=== PATIENT | male | born 1945 | race Caucasian/White ===

== ENCOUNTER → 2016-08-06 | Outpatient (REF) | payer MEDICARE ==
[~2016-08-06] MED LIST: ABIL15TA2 PO; ADVA115A INH; ALBU17IN INH; APAP325T PO; CLAR5TAB PO; CYAN1000VL IM; DIOV320T PO; DONETAB6 PO; FURO20TA2 PO; HYDR200T3 PO; LITH45TASA PO; MYRB50TA PO; OMEP20CA3 PO; SULF1TAB30 PO; TAMS0.4C2 PO; TYLE325T5 PO; VALS1TAB48 PO; VENL75CA47 PO; VIBR100C PO; WELLTAB38 PO
[2016-08-06 11:42] LABS: MEAN CORPUSCULAR HEMOGLOBIN 32.5 pg (27.0-33.0); MEAN CORPUSCULAR VOLUME 98.6 fl (80.0-96.0); RED CELL DISTRIBUTION WIDTH 13.1 % (11.5-14.5); WHITE BLOOD COUNT 6.6 K/mm3 (4.0-10.0)
[2016-08-06 12:31] LABS: ALBUMIN 3.5 GM/DL (3.2-5.2); ALBUMIN/GLOBULIN RATIO 1.03 (1.00-1.93); BILIRUBIN,TOTAL 0.2 MG/DL (0.2-1.0); CALCIUM LEVEL 8.9 MG/DL (8.8-10.2); CREATININE FOR GFR 1.34 MG/DL (0.70-1.30); GLOMERULAR FILTRATION RATE 56.3 (>49); POTASSIUM SERUM 4.7 MEQ/L (3.5-5.1); TOTAL PROTEIN 6.9 GM/DL (6.4-8.2)
== END ==
LOC: M SFHCPLAZ 08:33
PROVIDERS: ATTEND Internal Medicine
DX: D69.6 Thrombocytopenia, unspecified (principal); I10 Essential (primary) hypertension; E78.00 Pure hypercholesterolemia, unspecified; Z79.899 Other long term (current) drug therapy

== ENCOUNTER → 2016-11-26 | Outpatient (REF) | payer MEDICARE ==
[2016-11-26 10:54] LABS: MEAN CORPUSCULAR HEMOGLOBIN 32.4 pg (27.0-33.0); MEAN CORPUSCULAR HGB CONC 32.8 g/dl (32.0-36.5); RED CELL DISTRIBUTION WIDTH 13.5 % (11.5-14.5); WHITE BLOOD COUNT 6.8 K/mm3 (4.0-10.0)
[2016-11-26 11:05] LABS: ALBUMIN 3.5 GM/DL (3.2-5.2); ALBUMIN/GLOBULIN RATIO 0.95 (1.00-1.93); ALKALINE PHOSPHATASE 75 U/L (45-117); ALT/SGPT 27 U/L (12-78); ANION GAP 8 MEQ/L (8-16); AST/SGOT 28 U/L (15-37); BILIRUBIN,TOTAL 0.3 MG/DL (0.2-1.0); BLOOD UREA NITROGEN 18 MG/DL (7-18); CALCIUM LEVEL 8.7 MG/DL (8.8-10.2); CARBON DIOXIDE LEVEL 22 MEQ/L (21-32); CHLORIDE LEVEL 109 MEQ/L (98-107); CREATININE FOR GFR 1.25 MG/DL (0.70-1.30); GLOMERULAR FILTRATION RATE > 60.0 (>49); GLUCOSE, FASTING 151 MG/DL (80-110); POTASSIUM SERUM 4.5 MEQ/L (3.5-5.1); SODIUM LEVEL 139 MEQ/L (136-145); TOTAL PROTEIN 7.2 GM/DL (6.4-8.2)
== END ==
LOC: M SFHCPLAZ 07:42
PROVIDERS: ATTEND Internal Medicine
DX: D69.6 Thrombocytopenia, unspecified (principal); I10 Essential (primary) hypertension; R73.9 Hyperglycemia, unspecified; R97.20 Elevated prostate specific antigen [PSA]

== ENCOUNTER → 2017-01-07 | Outpatient (CLI) | payer MEDICARE ==
--- NOTE | 2017-01-07 13:31 | REP ---
TWO-VIEW CHEST: Two views of the chest are performed and compared to prior study of 10/12/2014 as well as other prior exams. Mild cardiomegaly and prominent cardiophrenic fat pads persist, unchanged. There is a large hiatal hernia again noted. Mediastinal silhouette is unchanged. Mild bibasilar fibroatelectatic change is stable with no new infiltrate. There are degenerative changes of the spine. IMPRESSION: Stable chronic findings as discussed in detail above, but no acute pulmonary disease. Signed by Moise Reddy MD 01/07/2017 07:48 P
== END ==
LOC: M SMT 09:53
PROVIDERS: ATTEND Internal Medicine Pulmonary Disease
DX: J45.40 Moderate persistent asthma, uncomplicated (principal)

== ENCOUNTER → 2017-04-03 | Outpatient (REF) | payer MEDICARE ==
[~2017-04-03] MED LIST changes: -ABIL15TA2 PO; +ABIL1TAB12 PO; -APAP325T PO; +APAP325T4 PO
[2017-04-03 13:28] LABS: ALBUMIN 3.6 GM/DL (3.2-5.2); ALBUMIN/GLOBULIN RATIO 1.13 (1.00-1.93); ALKALINE PHOSPHATASE 93 U/L (45-117); ALT/SGPT 36 U/L (12-78); ANION GAP 11 MEQ/L (8-16); AST/SGOT 36 U/L (15-37); BILIRUBIN,TOTAL 0.3 MG/DL (0.2-1.0); BLOOD UREA NITROGEN 16 MG/DL (7-18); CALCIUM LEVEL 9.5 MG/DL (8.8-10.2); CARBON DIOXIDE LEVEL 20 MEQ/L (21-32); CHLORIDE LEVEL 110 MEQ/L (98-107); CREATININE FOR GFR 1.24 MG/DL (0.70-1.30); GLOMERULAR FILTRATION RATE > 60.0 (>49); GLUCOSE, FASTING 133 MG/DL (80-110); POTASSIUM SERUM 4.8 MEQ/L (3.5-5.1); SODIUM LEVEL 141 MEQ/L (136-145); TOTAL PROTEIN 6.8 GM/DL (6.4-8.2)
[2017-04-03 13:39] LABS: MEAN CORPUSCULAR HEMOGLOBIN 34.2 pg (27.0-33.0); MEAN CORPUSCULAR HGB CONC 33.4 g/dl (32.0-36.5); MEAN CORPUSCULAR VOLUME 102.5 fl (80.0-96.0); RED CELL DISTRIBUTION WIDTH 12.6 % (11.5-14.5); WHITE BLOOD COUNT 6.4 K/mm3 (4.0-10.0)
== END ==
LOC: M SFHCPLAZ 09:18
PROVIDERS: ATTEND Internal Medicine
DX: D69.6 Thrombocytopenia, unspecified (principal); R73.9 Hyperglycemia, unspecified; I10 Essential (primary) hypertension

== ENCOUNTER 2017-08-20 07:13 | Emergency (ER) | payer MEDICARE ==
[2017-08-20] MEDS: IPRATROPIUM 0.5MG/ALBUTEROL 2.5MG INH SOL UD 3ML (DUONEB)(J7620) NEB ×2 (07:55→09:56)
[2017-08-20 08:12] LABS: BASO # 0.1 10^3/uL (0.0-0.2); BASO % 1.3 % (0.0-1.0); EOS # 0.6 10^3/uL (0.0-0.50); HEMATOCRIT 40.6 % (42.0-52.0); HEMOGLOBIN 13.3 g/dl (14.0-18.0); IMMATURE GRANULOCYTE % 0.3 % (0-0); LYMPH # 1.8 10^3/uL (1.5-4.5); LYMPH % 27.7 % (24.0-44.0); MEAN CORPUSCULAR HEMOGLOBIN 31.4 pg (27.0-33.0); MEAN CORPUSCULAR HGB CONC 32.8 g/dl (32.0-36.5); MONO # 0.6 10^3/uL (0.0-0.8); MONO % 9.1 % (0.0-5.0); NEUTROPHILS # 3.3 10^3/uL (1.8-7.7); NEUTROPHILS % 51.6 % (36.0-66.0); PLATELET COUNT, AUTOMATED 134 10^3/uL (150-450); RED BLOOD COUNT 4.23 10^6/uL (4.30-6.10); RED CELL DISTRIBUTION WIDTH 12.9 % (11.5-14.5); WHITE BLOOD COUNT 6.4 10^3/uL (4.0-10.0)
[2017-08-20 08:20] LABS: INR 1.07
[2017-08-20 09:00] LABS: LACTIC ACID SEPSIS PROTOCOL 2.2 MMOL/L (0.4-2.0)
[2017-08-20 09:00] LABS: ALBUMIN 3.3 GM/DL (3.2-5.2); ALKALINE PHOSPHATASE 84 U/L (45-117); ALT/SGPT 31 U/L (12-78); ANION GAP 5 MEQ/L (8-16); AST/SGOT 33 U/L (7-37); BILIRUBIN,DIRECT 0.1 MG/DL (0.0-0.2); BILIRUBIN,TOTAL 0.3 MG/DL (0.2-1.0); BLOOD UREA NITROGEN 19 MG/DL (7-18); CALCIUM LEVEL 9.4 MG/DL (8.8-10.2); CARBON DIOXIDE LEVEL 24 MEQ/L (21-32); CHLORIDE LEVEL 111 MEQ/L (98-107); CK-MB VALUE MASS 3.8 NG/ML (0.0-3.6); CPK CREATINE PHOSPHOKINASE 173 U/L (39-308); CREATININE FOR GFR 1.26 MG/DL (0.70-1.30); GLOMERULAR FILTRATION RATE > 60.0 (>42); GLUCOSE, FASTING 99 MG/DL (70-100); MB/CK RELATIVE INDEX 2.19 (< OR =4); NT-PRO BNP 75 PG/ML (<125); POTASSIUM SERUM 4.9 MEQ/L (3.5-5.1); SODIUM LEVEL 140 MEQ/L (136-145); TOTAL PROTEIN 7.4 GM/DL (6.4-8.2); TROPONIN I < 0.02 NG/ML (< 0.10)
[2017-08-20] MEDS: NS 1,000 ML IV (09:20)
[2017-08-20] MEDS ORDERED: ISOVUE-370 76% 100ML VIAL (Q9967) As Ordered (09:52)
[2017-08-20] MEDS: predniSONE 20 MG TAB PO (09:52)
[2017-08-20] MEDS: CEFUROXIME 500 MG TAB PO (11:30)
== END 2017-08-20 11:33 | disposition home or self-care (01) ==
LOC: M ED 07:13
DX: R05 Cough (principal); K44.9 Diaphragmatic hernia without obstruction or gangrene; I10 Essential (primary) hypertension; E11.9 Type 2 diabetes mellitus without complications; Z79.899 Other long term (current) drug therapy; Z79.51 Long term (current) use of inhaled steroids
CPT/HCPCS: Q9967

== ENCOUNTER → 2017-08-28 | Outpatient (REF) | payer MEDICARE | LOC: M SFHCPLAZ 13:48 | DX: R93.2 Abnormal findings on diagnostic imaging of liver and biliary tract (principal); R05 Cough; J45.909 Unspecified asthma, uncomplicated; E11.9 Type 2 diabetes mellitus without complications; Z79.84 Long term (current) use of oral hypoglycemic drugs; Z79.899 Other long term (current) drug therapy | CPT/HCPCS: G0472 ==

== ENCOUNTER → 2017-10-13 | Outpatient (REF) | payer MEDICARE ==
[2017-10-13 12:26] LABS: HEMATOCRIT 43.7 % (42.0-52.0); HEMOGLOBIN 14.1 g/dl (14.0-18.0); MEAN CORPUSCULAR HEMOGLOBIN 32.4 pg (27.0-33.0); MEAN CORPUSCULAR HGB CONC 32.3 g/dl (32.0-36.5); MEAN CORPUSCULAR VOLUME 100.5 fl (80.0-96.0); PLATELET COUNT, AUTOMATED 152 10^3/uL (150-450); RED BLOOD COUNT 4.35 10^6/uL (4.30-6.10); RED CELL DISTRIBUTION WIDTH 13.8 % (11.5-14.5); WHITE BLOOD COUNT 8.4 10^3/uL (4.0-10.0)
[2017-10-13 12:53] LABS: ALBUMIN 3.5 GM/DL (3.2-5.2); ALBUMIN/GLOBULIN RATIO 0.92 (1.00-1.93); ALKALINE PHOSPHATASE 99 U/L (45-117); ALT/SGPT 36 U/L (12-78); ANION GAP 10 MEQ/L (8-16); AST/SGOT 31 U/L (7-37); BILIRUBIN,TOTAL 0.3 MG/DL (0.2-1.0); BLOOD UREA NITROGEN 19 MG/DL (7-18); CALCIUM LEVEL 9.6 MG/DL (8.8-10.2); CARBON DIOXIDE LEVEL 24 MEQ/L (21-32); CHLORIDE LEVEL 110 MEQ/L (98-107); CHOLESTEROL LEVEL 146 MG/DL (<200); CHOLESTEROL RISK RATIO 3.173 (<5); GLOMERULAR FILTRATION RATE 53.3 (>42); GLUCOSE, FASTING 119 MG/DL (70-100); HDL CHOLESTEROL 46 MG/DL (>40); LDL CHOLESTEROL 74.2 MG/DL (<100); MAGNESIUM LEVEL 1.9 MG/DL (1.8-2.4); NON-HDL-C 100 MG/DL; POTASSIUM SERUM 4.9 MEQ/L (3.5-5.1); PROSTATIC SPECIFIC AG MONITOR 7.47 NG/ML (< 4.0); SODIUM LEVEL 144 MEQ/L (136-145); TOTAL PROTEIN 7.3 GM/DL (6.4-8.2); TRIGLYCERIDES LEVEL 129 MG/DL (<150)
[2017-10-13 13:14] LABS: ESTIMATED AVERAGE GLUCOSE 131 MG/DL (60-110); HEMOGLOBIN A1c 6.2 %
[2017-10-13 13:15] LABS: MALB URINE SIEMENS 14.1 MG/L; MAU/CREAT RATIO 11.2 MCG/MG (0.0-30.0)
[2017-10-14 12:35] LABS: HEP C VIRUS AB SCREEN MEDICARE 0.1 INDEX (<0.8)
== END ==
LOC: M SFHCPLAZ 09:04
DX: D69.6 Thrombocytopenia, unspecified (principal); I10 Essential (primary) hypertension; E11.9 Type 2 diabetes mellitus without complications; E78.00 Pure hypercholesterolemia, unspecified; R97.20 Elevated prostate specific antigen [PSA]; Z11.59 Encounter for screening for other viral diseases
CPT/HCPCS: 83735

== ENCOUNTER → 2018-04-20 | Outpatient (REF) | payer MEDICARE ==
[2018-04-20 10:07] LABS: HEMATOCRIT 46.3 % (42.0-52.0); HEMOGLOBIN 14.9 g/dl (13.5-17.5); MEAN CORPUSCULAR HEMOGLOBIN 32.6 pg (27.0-33.0); MEAN CORPUSCULAR HGB CONC 32.2 g/dl (32.0-36.5); MEAN CORPUSCULAR VOLUME 101.3 fl (80.0-96.0); PLATELET COUNT, AUTOMATED 129 10^3/uL (150-450); RED BLOOD COUNT 4.57 10^6/uL (4.30-6.10); RED CELL DISTRIBUTION WIDTH 13.2 % (11.5-14.5); WHITE BLOOD COUNT 7.6 10^3/uL (4.0-10.0)
[2018-04-20 10:50] LABS: ALBUMIN 3.7 GM/DL (3.2-5.2); ALBUMIN/GLOBULIN RATIO 0.95 (1.00-1.93); ALKALINE PHOSPHATASE 77 U/L (45-117); ALT/SGPT 28 U/L (12-78); ANION GAP 12 MEQ/L (8-16); AST/SGOT 25 U/L (7-37); BILIRUBIN,TOTAL 0.2 MG/DL (0.2-1.0); BLOOD UREA NITROGEN 33 MG/DL (7-18); CALCIUM LEVEL 9.9 MG/DL (8.8-10.2); CARBON DIOXIDE LEVEL 18 MEQ/L (21-32); CHLORIDE LEVEL 111 MEQ/L (98-107); GLOMERULAR FILTRATION RATE 53.3 (>42); GLUCOSE, FASTING 141 MG/DL (70-100); MAGNESIUM LEVEL 2.1 MG/DL (1.8-2.4); POTASSIUM SERUM 4.8 MEQ/L (3.5-5.1); PROSTATIC SPECIFIC AG MONITOR 8.71 NG/ML (< 4.0); SODIUM LEVEL 141 MEQ/L (136-145); TOTAL PROTEIN 7.6 GM/DL (6.4-8.2)
[2018-04-20 11:51] LABS: ESTIMATED AVERAGE GLUCOSE 120 MG/DL (60-110); HEMOGLOBIN A1c 5.8 %
== END ==
LOC: M SFHCPLAZ 08:05
DX: G47.30 Sleep apnea, unspecified (principal); D69.6 Thrombocytopenia, unspecified; E11.9 Type 2 diabetes mellitus without complications; Z12.5 Encounter for screening for malignant neoplasm of prostate
CPT/HCPCS: 83735

== ENCOUNTER → 2018-10-19 | Outpatient (REF) | payer MEDICARE ==
[~2018-10-19] MED LIST changes: +ALBU83IN INH; +CEFT250T8 PO; +COMP1MIS3 XX; +PRED20TA PO
[2018-10-19 11:44] LABS: MALB URINE SIEMENS 21.2 MG/L; MAU/CREAT RATIO 15.2 MCG/MG (0.0-30.0)
[2018-10-19 11:47] LABS: BASO # 0.1 10^3/uL (0.0-0.2); BASO % 1.1 % (0.0-1.0); EOS # 0.7 10^3/uL (0.0-0.50); HEMOGLOBIN 14.5 g/dl (13.5-17.5); LYMPH # 2.1 10^3/uL (1.5-4.5); LYMPH % 29.3 % (24.0-44.0); MEAN CORPUSCULAR HEMOGLOBIN 32.4 pg (27.0-33.0); MEAN CORPUSCULAR HGB CONC 32.2 g/dl (32.0-36.5); MEAN CORPUSCULAR VOLUME 100.7 fl (80.0-96.0); MONO # 0.7 10^3/uL (0.0-0.8); MONO % 9.5 % (0.0-5.0); NEUTROPHILS # 3.6 10^3/uL (1.8-7.7); NEUTROPHILS % 49.7 % (36.0-66.0); PLATELET COUNT, AUTOMATED 158 10^3/uL (150-450); RED BLOOD COUNT 4.47 10^6/uL (4.30-6.10); WHITE BLOOD COUNT 7.3 10^3/uL (4.0-10.0)
[2018-10-19 11:53] LABS: ALBUMIN 3.7 GM/DL (3.2-5.2); ALT/SGPT 13 U/L (12-78); BILIRUBIN,TOTAL 0.3 MG/DL (0.2-1.0); BLOOD UREA NITROGEN 20 MG/DL (7-18); CALCIUM LEVEL 9.3 MG/DL (8.8-10.2); CARBON DIOXIDE LEVEL 23 MEQ/L (21-32); CHLORIDE LEVEL 113 MEQ/L (98-107); CHOLESTEROL LEVEL 173 MG/DL (<200); CHOLESTEROL RISK RATIO 3.392 (<5); GLOMERULAR FILTRATION RATE > 60.0 (>42); GLUCOSE, FASTING 120 MG/DL (70-100); HDL CHOLESTEROL 51 MG/DL (>40); LDL CHOLESTEROL 104 MG/DL (<100); MAGNESIUM LEVEL 1.9 MG/DL (1.8-2.4); NON-HDL-C 122 MG/DL; POTASSIUM SERUM 4.5 MEQ/L (3.5-5.1); SODIUM LEVEL 141 MEQ/L (136-145); TRIGLYCERIDES LEVEL 90 MG/DL (<150)
[2018-10-19 12:19] LABS: HEMOGLOBIN A1c 6.4 %
[2018-10-20 14:12] LABS: PSA % FREE 9.2 % (.); PSA FREE 0.84 ng/mL; PSA TOTAL 9.1 ng/mL (0.0-4.0)
== END ==
LOC: M SFHCPLAZ 08:08
PROVIDERS: ATTEND Internal Medicine
DX: D69.6 Thrombocytopenia, unspecified (principal); I12.9 Hypertensive chronic kidney disease with stage 1 through stage 4 chronic kidney disease, or unspecified chronic kidney disease; E11.9 Type 2 diabetes mellitus without complications; E78.00 Pure hypercholesterolemia, unspecified; R97.20 Elevated prostate specific antigen [PSA]

== ENCOUNTER → 2018-10-26 | Outpatient (CLI) | payer MEDICARE ==
[~2018-10-26] MED LIST changes: -VALS1TAB48 PO; +VALS1TAB68 PO
--- NOTE | 2018-10-26 09:57 | REP ---
CT IACS WITHOUT CONTRAST: HISTORY: Hearing loss. The internal auditory canals , cochlea, vestibules, and semicircular canals are normal in appearance. There is no carotid canal or jugular bulb dehiscence. The ossicles are normal in configuration and position. The scutum and right tegmen are intact. There are areas of dehiscence in the left tegmen. The middle ear cavities are clear. Minimal mucosal thickening is present in the right mastoid air cells. Mild mucosal thickening is present in the left mastoid air cells. Mucosa thickening is present in the ethmoid, maxillary and right sphenoid sinuses. The nasopharynx is normal in appearance. IMPRESSION:There is minimal right and mild left mastoid air cell mucosal thickening. Electronically Signed by Zechariah Granda MD 10/26/2018 10:12 A
== END ==
LOC: M RAD 08:52
PROVIDERS: ATTEND Otolaryngology
DX: H90.A32 Mixed conductive and sensorineural hearing loss, unilateral, left ear with restricted hearing on the contralateral side (principal)

== ENCOUNTER → 2019-05-03 | Outpatient (REF) | payer MEDICARE ==
[~2019-05-03] MED LIST changes: +OMEP1CAP73 PO; -OMEP20CA3 PO
[2019-05-03 12:00] LABS: BASO # 0.1 10^3/uL (0.0-0.2); BASO % 1.1 % (0.0-1.0); EOS # 0.5 10^3/uL (0.0-0.5); EOS % 6.9 % (0.0-3.0); HEMATOCRIT 44.6 % (42.0-52.0); HEMOGLOBIN 14.1 g/dl (13.5-17.5); LYMPH # 1.3 10^3/uL (1.5-5.0); LYMPH % 17.4 % (24.0-44.0); MEAN CORPUSCULAR HEMOGLOBIN 34.2 pg (27.0-33.0); MEAN CORPUSCULAR HGB CONC 31.6 g/dl (32.0-36.5); MEAN CORPUSCULAR VOLUME 108.3 fl (80.0-96.0); MONO # 0.8 10^3/uL (0.0-0.8); NEUTROPHILS # 4.6 10^3/uL (1.5-8.5); NEUTROPHILS % 63.2 % (36.0-66.0); PLATELET COUNT, AUTOMATED 131 10^3/uL (150-450); RED BLOOD COUNT 4.12 10^6/uL (4.30-6.10); WHITE BLOOD COUNT 7.3 10^3/uL (4.0-10.0)
[2019-05-03 12:20] LABS: ALBUMIN 3.7 GM/DL (3.2-5.2); BILIRUBIN,TOTAL 0.4 MG/DL (0.2-1.0); CALCIUM LEVEL 9.6 MG/DL (8.8-10.2); CHOLESTEROL RISK RATIO 3.129 (<5); CREATININE FOR GFR 1.66 MG/DL (0.70-1.30); GLOMERULAR FILTRATION RATE 43.7 (>42); POTASSIUM SERUM 5.1 MEQ/L (3.5-5.1); THYROID STIMULATING HORMONE 2.24 uIU/ML (0.358-3.740); TOTAL PROTEIN 7.7 GM/DL (6.4-8.2)
[2019-05-03 12:36] LABS: MALB URINE SIEMENS 28.9 MG/L; MAU/CREAT RATIO 25.3 MCG/MG (0.0-30.0)
[2019-05-03 13:12] LABS: HEMOGLOBIN A1c 5.4 %
[2019-05-05 00:07] LABS: PSA TOTAL 12.1 ng/mL (0.0-4.0)
== END ==
LOC: M SFHCPLAZ 09:06
PROVIDERS: ATTEND Internal Medicine
DX: D69.6 Thrombocytopenia, unspecified (principal); I12.9 Hypertensive chronic kidney disease with stage 1 through stage 4 chronic kidney disease, or unspecified chronic kidney disease; E11.9 Type 2 diabetes mellitus without complications; E78.00 Pure hypercholesterolemia, unspecified; R97.20 Elevated prostate specific antigen [PSA]; Z79.899 Other long term (current) drug therapy; E53.8 Deficiency of other specified B group vitamins

== ENCOUNTER → 2019-08-09 | Outpatient (REF) | payer MEDICARE ==
[2019-08-09 11:42] LABS: HEMATOCRIT 44.9 % (42.0-52.0); HEMOGLOBIN 14.3 g/dl (13.5-17.5); MEAN CORPUSCULAR HGB CONC 31.8 g/dl (32.0-36.5); MEAN CORPUSCULAR VOLUME 103.7 fl (80.0-96.0); PLATELET COUNT, AUTOMATED 154 10^3/uL (150-450); RED BLOOD COUNT 4.33 10^6/uL (4.30-6.10); WHITE BLOOD COUNT 8.8 10^3/uL (4.0-10.0)
[2019-08-09 11:56] LABS: ALBUMIN 3.8 GM/DL (3.2-5.2); BILIRUBIN,TOTAL 0.3 MG/DL (0.2-1.0); CALCIUM LEVEL 9.7 MG/DL (8.8-10.2); CREATININE FOR GFR 1.63 MG/DL (0.70-1.30); GLOMERULAR FILTRATION RATE 44.5 (>42); MAGNESIUM LEVEL 2.1 MG/DL (1.8-2.4); POTASSIUM SERUM 5.2 MEQ/L (3.5-5.1); PROSTATIC SPECIFIC AG MONITOR 12.7 NG/ML (< 4.00); TOTAL PROTEIN 7.5 GM/DL (6.4-8.2)
[2019-08-09 14:34] LABS: HEMOGLOBIN A1c 5.9 %
== END ==
LOC: M SFHCPLAZ 08:34
PROVIDERS: ATTEND Internal Medicine
DX: D69.6 Thrombocytopenia, unspecified (principal); I12.9 Hypertensive chronic kidney disease with stage 1 through stage 4 chronic kidney disease, or unspecified chronic kidney disease; E11.9 Type 2 diabetes mellitus without complications; R97.20 Elevated prostate specific antigen [PSA]

== ENCOUNTER → 2019-09-07 | Outpatient (REF) | payer MEDICARE ==
[2019-09-07 14:24] LABS: APPEARANCE, URINE CLEAR (CLEAR); BACTERIA, URINE AUTO 1+ (NEGATIVE); BILIRUBIN, URINE AUTO NEGATIVE (NEGATIVE); BLOOD, URINE BLOOD NEGATIVE (NEGATIVE); COLOR, URINE YELLOW (YELLOW); GLUCOSE, URINE (UA) AUTO NEGATIVE (NEGATIVE); KETONE, URINE AUTO NEGATIVE (NEGATIVE); LEUKOCYTE ESTERASE, URINE AUTO 2+ (NEGATIVE); NITRITE, URINE AUTO NEGATIVE (NEGATIVE); PROTEIN, URINE AUTO NEGATIVE (NEGATIVE); RBC, URINE AUTO 4 /HPF (0-3); SPECIFIC GRAVITY URINE AUTO 1.015 (1.002-1.035); SQUAMOUS EPITHELIAL CELL UR AU 1 /HPF (0-6); UROBILINOGEN, URINE AUTO 0.2 mg/dL (0.0-2.0); WBC, URINE AUTO 16 /HPF (0-3)
== END ==
LOC: M SMT 12:58
PROVIDERS: ATTEND Nurse Practitioner Family
DX: R39.9 Unspecified symptoms and signs involving the genitourinary system (principal)
CPT/HCPCS: 51798; 81001; 87088; 87186; G0463

== ENCOUNTER → 2019-10-11 | Outpatient (REF) | payer MEDICARE ==
[2019-10-11 14:11] LABS: APPEARANCE, URINE CLEAR (CLEAR); BACTERIA, URINE AUTO NEGATIVE (NEGATIVE); BILIRUBIN, URINE AUTO NEGATIVE (NEGATIVE); BLOOD, URINE BLOOD NEGATIVE (NEGATIVE); COLOR, URINE YELLOW (YELLOW); GLUCOSE, URINE (UA) AUTO NEGATIVE (NEGATIVE); KETONE, URINE AUTO NEGATIVE (NEGATIVE); LEUKOCYTE ESTERASE, URINE AUTO TRACE (NEGATIVE); NITRITE, URINE AUTO NEGATIVE (NEGATIVE); PROTEIN, URINE AUTO NEGATIVE (NEGATIVE); RBC, URINE AUTO 1 /HPF (0-3); SPECIFIC GRAVITY URINE AUTO 1.013 (1.002-1.035); SQUAMOUS EPITHELIAL CELL UR AU 0 /HPF (0-6); UROBILINOGEN, URINE AUTO 0.2 mg/dL (0.0-2.0); WBC, URINE AUTO 6 /HPF (0-3)
[2019-10-12 14:07] LABS: PSA % FREE 11.1 % (.); PSA FREE 1.04 ng/mL; PSA TOTAL 9.4 ng/mL (0.0-4.0)
== END ==
LOC: M SFHCPLAZ 11:43
PROVIDERS: ATTEND Internal Medicine
DX: R97.20 Elevated prostate specific antigen [PSA] (principal); N39.0 Urinary tract infection, site not specified

== ENCOUNTER → 2020-02-08 | Outpatient (REF) | payer MEDICARE ==
[2020-02-08 14:25] LABS: BASO # 0.1 10^3/uL (0.0-0.2); BASO % 1.1 % (0.0-1.0); EOS # 0.5 10^3/uL (0.0-0.5); EOS % 7.2 % (0.0-3.0); HEMATOCRIT 39.5 % (42.0-52.0); HEMOGLOBIN 12.5 g/dl (13.5-17.5); LYMPH % 30.6 % (24.0-44.0); MEAN CORPUSCULAR HEMOGLOBIN 33.3 pg (27.0-33.0); MEAN CORPUSCULAR HGB CONC 31.6 g/dl (32.0-36.5); MEAN CORPUSCULAR VOLUME 105.3 fl (80.0-96.0); MONO # 0.8 10^3/uL (0.0-0.8); MONO % 12.5 % (0.0-5.0); NEUTROPHILS # 3.2 10^3/uL (1.5-8.5); NEUTROPHILS % 48.1 % (36.0-66.0); PLATELET COUNT, AUTOMATED 160 10^3/uL (150-450); RED BLOOD COUNT 3.75 10^6/uL (4.30-6.10); WHITE BLOOD COUNT 6.7 10^3/uL (4.0-10.0)
[2020-02-08 14:42] LABS: HEMOGLOBIN A1c 5.2 %
[2020-02-08 14:58] LABS: ALBUMIN 3.6 GM/DL (3.2-5.2); BILIRUBIN,TOTAL 0.4 MG/DL (0.2-1.0); CALCIUM LEVEL 9.7 MG/DL (8.8-10.2); CHOLESTEROL RISK RATIO 3.24 (<5); CREATININE FOR GFR 1.84 MG/DL (0.70-1.30); GLOMERULAR FILTRATION RATE 38.7 (>42); MAGNESIUM LEVEL 2.3 MG/DL (1.8-2.4); POTASSIUM SERUM 5.4 MEQ/L (3.5-5.1); PROSTATIC SPECIFIC AG MONITOR 13.8 NG/ML (< 4.00); TOTAL PROTEIN 7.6 GM/DL (6.4-8.2)
[2020-02-08 15:04] LABS: CREATININE, URINE 73.5 MG/DL; MALB URINE SIEMENS 9.8 MG/L; MAU/CREAT RATIO 13.3 MCG/MG (0.0-30.0)
[2020-02-08 15:05] LABS: PTH INTACT 59.7 PG/ML (18.5-88.0)
== END ==
LOC: M PLALAB 09:25
PROVIDERS: ATTEND Internal Medicine
DX: D69.6 Thrombocytopenia, unspecified (principal); I12.9 Hypertensive chronic kidney disease with stage 1 through stage 4 chronic kidney disease, or unspecified chronic kidney disease; E11.9 Type 2 diabetes mellitus without complications; E78.00 Pure hypercholesterolemia, unspecified; N18.3 Chronic kidney disease, stage 3 (moderate); R97.20 Elevated prostate specific antigen [PSA]

== ENCOUNTER → 2020-04-20 | Outpatient (CLI) | payer MEDICARE ==
[2020-04-24 23:07] LABS: PSA TOTAL 11.4 ng/mL (0.0-4.0)
== END ==
LOC: M PLALAB 10:21
PROVIDERS: ATTEND Nurse Practitioner Family
DX: N39.0 Urinary tract infection, site not specified (principal); R97.20 Elevated prostate specific antigen [PSA]

== ENCOUNTER → 2020-04-27 | Outpatient (REF) | payer MEDICARE ==
[2020-04-27 10:33] LABS: BASO # 0.1 10^3/uL (0.0-0.2); EOS % 12.4 % (0.0-3.0); HEMATOCRIT 38.7 % (42.0-52.0); HEMOGLOBIN 12.2 g/dl (13.5-17.5); LYMPH # 1.9 10^3/uL (1.5-5.0); LYMPH % 22.9 % (24.0-44.0); MEAN CORPUSCULAR HGB CONC 31.5 g/dl (32.0-36.5); MEAN CORPUSCULAR VOLUME 104.6 fl (80.0-96.0); MONO # 0.9 10^3/uL (0.0-0.8); MONO % 10.6 % (0.0-5.0); NEUTROPHILS # 4.4 10^3/uL (1.5-8.5); NEUTROPHILS % 52.5 % (36.0-66.0); PLATELET COUNT, AUTOMATED 165 10^3/uL (150-450); WHITE BLOOD COUNT 8.4 10^3/uL (4.0-10.0)
[2020-04-27 10:52] LABS: ALBUMIN 3.4 GM/DL (3.2-5.2); BILIRUBIN,TOTAL 0.2 MG/DL (0.2-1.0); CALCIUM LEVEL 9.5 MG/DL (8.8-10.2); CREATININE FOR GFR 1.32 MG/DL (0.70-1.30); GLOMERULAR FILTRATION RATE 56.8 (>42); POTASSIUM SERUM 4.6 MEQ/L (3.5-5.1); TOTAL PROTEIN 7.1 GM/DL (6.4-8.2)
[2020-04-27 11:00] LABS: PTH INTACT 74.9 PG/ML (18.5-88.0)
== END ==
LOC: M PLALAB 08:48
PROVIDERS: ATTEND Internal Medicine
DX: D69.6 Thrombocytopenia, unspecified (principal); I12.9 Hypertensive chronic kidney disease with stage 1 through stage 4 chronic kidney disease, or unspecified chronic kidney disease; N18.9 Chronic kidney disease, unspecified

== ENCOUNTER → 2020-05-18 | Outpatient (REF) | payer MEDICARE ==
[2020-05-22 18:10] LABS: PSA % FREE 11.1 % (.); PSA FREE 0.89 ng/mL
== END ==
LOC: M PLALAB 14:45
PROVIDERS: ATTEND Nurse Practitioner Family
DX: R97.20 Elevated prostate specific antigen [PSA] (principal)

== ENCOUNTER → 2020-07-30 | Outpatient (REF) | payer MEDICARE ==
[2020-07-30 15:39] LABS: ALBUMIN 3.6 GM/DL (3.2-5.2); BILIRUBIN,TOTAL 0.3 MG/DL (0.2-1.0); CALCIUM LEVEL 9.5 MG/DL (8.8-10.2); CREATININE FOR GFR 1.37 MG/DL (0.70-1.30); GLOMERULAR FILTRATION RATE 54.4 (>42); POTASSIUM SERUM 4.1 MEQ/L (3.5-5.1)
[2020-07-30 15:46] LABS: PTH INTACT 55.1 PG/ML (18.5-88.0)
== END ==
LOC: M SFHCPLAZ 09:47
PROVIDERS: ATTEND Internal Medicine
DX: I12.9 Hypertensive chronic kidney disease with stage 1 through stage 4 chronic kidney disease, or unspecified chronic kidney disease (principal); N18.30 Chronic kidney disease, stage 3 unspecified

== ENCOUNTER → 2020-11-29 | Outpatient (REF) | payer MEDICARE ==
[2020-11-29 10:51] LABS: HEMOGLOBIN A1c 5.5 %
[2020-11-29 11:03] LABS: CHOLESTEROL RISK RATIO 3.203 (<5)
== END ==
LOC: M PLALAB 09:46
PROVIDERS: ATTEND Psychiatry & Neurology Psychiatry
DX: Z79.899 Other long term (current) drug therapy (principal)

== ENCOUNTER → 2020-11-29 | Outpatient (REF) | payer MEDICARE | LOC: M PLALAB 09:48 | PROVIDERS: ATTEND Nurse Practitioner Women's Health | DX: R97.20 Elevated prostate specific antigen [PSA] (principal) ==

== ENCOUNTER → 2020-12-03 | Outpatient (REF) | payer MEDICARE ==
[2020-12-03 14:17] LABS: APPEARANCE, URINE HAZY (CLEAR); BACTERIA, URINE AUTO NEGATIVE (NEGATIVE); BILIRUBIN, URINE AUTO NEGATIVE (NEGATIVE); BLOOD, URINE BLOOD NEGATIVE (NEGATIVE); COLOR, URINE AMBER (YELLOW); GLUCOSE, URINE (UA) AUTO NEGATIVE (NEGATIVE); KETONE, URINE AUTO NEGATIVE (NEGATIVE); LEUKOCYTE ESTERASE, URINE AUTO 3+ (NEGATIVE); NITRITE, URINE AUTO NEGATIVE (NEGATIVE); PROTEIN, URINE AUTO 1+ mg/dL (NEGATIVE); RBC, URINE AUTO 2 /HPF (0-3); SPECIFIC GRAVITY URINE AUTO 1.019 (1.002-1.035); SQUAMOUS EPITHELIAL CELL UR AU 4 /HPF (0-6); UROBILINOGEN, URINE AUTO 0.2 mg/dL (0.0-2.0); WBC, URINE AUTO 23 /HPF (0-3)
== END ==
LOC: M SMT 13:09
PROVIDERS: ATTEND Urology
DX: R97.20 Elevated prostate specific antigen [PSA] (principal); R30.0 Dysuria
CPT/HCPCS: 81001; 87086; G0463

== ENCOUNTER → 2020-12-14 | Outpatient (REF) | payer MEDICARE ==
[2020-12-14 12:39] LABS: HEMATOCRIT 42.5 % (42.0-52.0); HEMOGLOBIN 13.6 g/dl (13.5-17.5); MEAN CORPUSCULAR HEMOGLOBIN 30.9 pg (27.0-33.0); MEAN CORPUSCULAR VOLUME 96.6 fl (80.0-96.0); PLATELET COUNT, AUTOMATED 230 10^3/uL (150-450); WHITE BLOOD COUNT 8.7 10^3/uL (4.0-10.0)
[2020-12-14 12:54] LABS: CALCIUM LEVEL 9.2 MG/DL (8.8-10.2); CREATININE FOR GFR 1.35 MG/DL (0.70-1.30); GLOMERULAR FILTRATION RATE 55.2 (>42); POTASSIUM SERUM 4.8 MEQ/L (3.5-5.1)
== END ==
LOC: M LABSMT 09:27
PROVIDERS: ATTEND Urology
DX: R97.20 Elevated prostate specific antigen [PSA] (principal)

== ENCOUNTER → 2020-12-19 | Outpatient (CLI) | payer MEDICARE ==
[~2020-12-19] MED LIST changes: +PROHANCE 279.3MG/ML 5ML VIAL As Ordered ONE
--- NOTE | 2020-12-19 18:38 | REP ---
INDICATION: ELEVATED PSA PROSTATE FUSION . COMPARISON: Comparison sonography 2013. TECHNIQUE: Using a phased array surface coil, small tyhzl-bf-byyh imaging was acquired using T2 weighted scans in the axial, coronal, and sagittal imaging planes. Small ksytg-rn-kcwa diffusion-weighted sequences are acquired. Small hezxu-oi-mzcu axial T1 weighted scans are acquired dynamically before and after the intravenous administration of 10 mL of ProHance. Imaging is reviewed using the [employer] computer-aided detection system. FINDINGS: There is no evidence of skeletal metastasis in the visualized bony pelvis or proximal femurs. No pelvic or inguinal adenopathy is seen. No extraprostatic disease is observed. Prostate glandular dimensions are 4.4 x 3.7 x 3.4 cm. Calculated glandular volume 33.3 mL. There is hypertrophy of the central gland with nodular and cystic changes. Three focal regions of interest are identified based on imaging parameters within the prostate. These are submitted for consideration of MR/ultrasound fusion directed biopsy. Lesion 1 is in the left mid anterior stroma characterized by an area of low T2 signal, mixed enhancement and washout kinetics similar to background, and moderately low ADC. PI-RADS category 3. It measures 0.9 x 0.6 x 1.0 cm, 0.4 mL. Lesion 2 is in the left mid anterolateral peripheral zone measuring 1.5 x 0.7 x 1.4 cm, 0.92 mL. It is a circumscribed nodular area of low T2 signal intensity with predominantly persistent enhancement characteristics and low ADC. PI-RADS category 3/5. Lesion 3 is in the left apicolateral peripheral zone measuring 0.7 x 0.6 x 0.7 cm, 0.2 mL. It is a small peripheral zone low T2 signal intensity nodule with slightly reduced ADC and type 3 contrast enhancement and washout curve. PI-RADS category 3/5. IMPRESSION: BPH changes and 3 nodular targets identified within the prostate submitted for consideration of fusion directed needle biopsy. No extraprostatic disease. <Electronically signed by Doc Werner > 12/19/20 [id number]
== END ==
LOC: M RAD 12:40
PROVIDERS: ATTEND Urology
DX: N40.0 Benign prostatic hyperplasia without lower urinary tract symptoms (principal); R97.20 Elevated prostate specific antigen [PSA]
CPT/HCPCS: 72197; A9576

== ENCOUNTER → 2021-01-01 | Outpatient (CLI) | payer MEDICARE ==
[~2021-01-01] MED LIST changes: -PROHANCE 279.3MG/ML 5ML VIAL As Ordered ONE
--- NOTE | 2021-01-02 15:20 | REPPI ---
INDICATION: ELEVATED PSA. COMPARISON: MRI 12/19/2020. TECHNIQUE: Transrectal prostate ultrasound performed, with ultrasound guidance provided for Dr. Lima who performed ultrasound-guided biopsy. FINDINGS: Transrectal ultrasound guidance was provided for Dr. Lima who performed ultrasound-guided biopsy. IMPRESSION: Transrectal ultrasound guidance was provided for Dr. Lima who performed ultrasound-guided biopsy of the prostate. <Electronically signed by Moise Reddy > 01/02/21 [id number]
== END ==
LOC: M SMT PRO 08:12
PROVIDERS: ATTEND Urology
DX: C61 Malignant neoplasm of prostate (principal)
CPT/HCPCS: 55700; 76942; G0416

== ENCOUNTER → 2021-01-25 | Outpatient (CLI) | payer MEDICARE ==
--- NOTE | 2021-01-25 10:46 | RADONC.CN ---
Radiation Oncology Hx/Consult Radiation Oncology Consult Date of Service: Jan 25, 2021 Pt Identifier He Whelan is a 75 year old male with a family history of prostate cancer, and recently diagnosed unfavorable intermediate risk prostate cancer cT2a [place] 3+4=7 (7/12 cores+) PSA 17.4. He is seen today for consideration of RT. He has received 6 months of Eligard from Dr. Lima. Diagnosis/Treatment History Oncologic History Followed by Dr. Lima for elevated PSA. DANTE right sided small nodule PSA trend: 05/03/19 12.1 08/09/19 12.7 10/11/19 9.4 04/20/20 11.4 05/18/20 8.0 11/29/20 17.4 01/01/21 TRUS biopsy [place] 3+4=7 7/12 cores positive 12/19/20 MRI prostate Prostate glandular dimensions are 4.4 x 3.7 x 3.4 cm. Calculated glandular volume 33.3 mL. There is hypertrophy of the central gland with nodular and cystic changes. Three focal regions of interest are identified based on imaging parameters within the prostate. These are submitted for consideration of MR/ultrasound fusion directed biopsy. Lesion 1 is in the left mid anterior stroma characterized by an area of low T2 signal, mixed enhancement and washout kinetics similar to background, and moderately low ADC. PI-RADS category 3. It measures 0.9 x 0.6 x 1.0 cm, 0.4 mL. Lesion 2 is in the left mid anterolateral peripheral zone measuring 1.5 x 0.7 x 1.4 cm, 0.92 mL. It is a circumscribed nodular area of low T2 signal intensity with predominantly persistent enhancement characteristics and low ADC. PI-RADS category 3/5. Lesion 3 is in the left apicolateral peripheral zone measuring 0.7 x 0.6 x 0.7 cm, 0.2 mL. It is a small peripheral zone low T2 signal intensity nodule with slightly reduced ADC and type 3 contrast enhancement and washout curve. PI-RADS category 3/5. IMPRESSION: BPH changes and 3 nodular targets identified within the prostate submitted for consideration of fusion directed needle biopsy. No extraprostatic disease. Interval History He is the county medical screener. He has some weak stream and stable 2x noct uria. He has ED. He has no problems with bowel movements. No BRBPR. Appetite good weight stable. Has some chronic fatigue related to his work. Has prior positive lupus titers, no clinical symptoms. Past Medical History: Asthma Bipolar disorder CKD DMII HPL HTN SLE JAIRO Ulcerative colitis Past Surgical History: Cataracts Retinal detachment Colonoscopy Hernia repair Family History: Father prostate cancer Brother prostate cancer Social History: Never smoker Never drinker Allergies / Meds Allergies: Coded Allergies: No Known Allergies (Unverified , 10/25/14) Home Meds Active Scripts Albuterol Sulf (Albuterol Sulfate) 2.5 Mg/3 Ml Nebu, 2.5 MG INH 4-6 hours prn PRN for dyspnea, #1 KIRA Prov:Zayra Rosales MD 08/20/17 Prednisone (Prednisone) 20 Mg Tab, 60 MG PO DAILY, #15 TAB Prov:Zayra Rosales MD 08/20/17 Reported Medications Doxycycline Hyclate (Vibramycin) 100 Mg Cap, 100 MG PO BID for 10 Days, CAP 10/31/15 Aripiprazole (Abilify) 15 Mg Tab, 15 MG PO QHS, TAB 10/29/15 Mirabegron (Myrbetriq) 50 Mg Tab, 50 MG PO DAILY, TAB 10/29/15 Furosemide (Furosemide) 20 Mg Tab, 20 MG PO DAILY PRN for EDEMA, TAB 10/29/15 Valsartan (Diovan) 320 Mg Tab, 320 MG PO QHS, TAB 10/29/15 Cyanocobalamin (Cyanocobalamin Injection) 1,000 Mcg/1 Ml Inj, 1000 MCG IM Q2WK, INJ EVERY OTHER Thursday10/25/14 Donepezil Hcl (Donepezil HCl Odt) 10 Mg Tab, 10 MG PO QHS 10/25/14 Sulfasalazine (Sulfasalazine) 500 Mg Tab, 2000 MG PO BID, TAB 10/25/14 Desloratadine (Clarinex) 5 Mg Tab, 5 MG PO QHS, TAB 10/25/14 Hydroxychloroquine Sulfate (Hydroxychloroquine Sulfate) 200 Mg Tab, 200 MG PO BID, TAB 10/25/14 Omeprazole (Omeprazole) 20 Mg Cap, 20 MG PO QHS, CAP 10/25/14 Fluticasone Propion/Salmeterol (Advair Hfa 115-21 Mcg Inhaler) 1 Aer Aer, 2 PUFF INH BID, INHALER 10/25/14 Venlafaxine HCl (Venlafaxine HCl ER) 75 Mg Capcr, 150 MG PO QHS, CAPCR 10/25/14 Venlafaxine HCl (Venlafaxine HCl ER) 75 Mg Capcr, 75 MG PO QAM, CAPCR 10/25/14 Bupropion HCl (Wellbutrin Xl) 150 Mg Tab, 150 MG PO DAILY, TAB 10/25/14 Tamsulosin Hcl (Tamsulosin HCl) 0.4 Mg Cap, 0.4 MG PO DAILY, CAP 10/25/14 Discontinued Reported Medications Acetaminophen (Tylenol) 325 Mg Tab, 650 MG PO Q4HP PRN for PAIN OR FEVER, TAB 10/31/15 Albuterol Sulfate (Ventolin Hfa) 200 Puff/8 Gm Aers, 2 PUFF INH QID PRN for SHOR TNESS OF BREATH, INHALER 10/25/14 Discontinued Scripts Compressor Nebulizer (Compressor Nebulizer) 1 Mis Mis, MIS XX as directed for asthma, #1 Prov:Zayra Rosales MD 08/20/17 Cefuroxime Axetil (Ceftin) 250 Mg Tab, 500 MG PO BID, #40 TAB Prov:Zayra Rosales MD 08/20/17 Review of Systems Constitutional: Reports: Fatigue; Denies: Weight Loss HEENT: Denies: Head Aches Pulmonary: Reports: Cough; Denies: Dyspnea Cardiovascular: Denies: Chest Pain Gastrointestinal: Denies: Abdominal Pain, Hematochezia Genitourinary: Reports: Frequency; Denies: Hematuria Hematologic: Denies: Bruising Musculoskeletal: Denies: Neck pain, Back pain Neurological: Denies: Weakness, Numbness Psych: Reports: Mood Normal Vital Signs Ht 60" Wt 253 lbs BMI 49 T 98 RR 18 BP 117/68 O2 98% Pain 0 Fatigue 0 General Exam: Positive: Alert, Cooperative, No Acute Distress Eye Exam: Positive: PERRLA, EOMI ENT EXAM: Positive: Atraumatic Neck Exam: Positive: Supple Chest Exam: Positive: Clear to auscultation Heart Exam: Positive: Rate Normal Abdomen Exam: Positive: Soft Male Exam: Positive: Normal Sphincter Tone; Negative: Normal Prostate (Right sided small nodule, left side boggy but s mooth 3+) Neuro Exam: Positive: Normal Gait, Normal Speech, Cranial Nerves 3-12 NL Psych Exam: Positive: Mental status NL Diagnostic and Laboratory Diagnostic Review Radiologic images, relevant labs and pathology reports were personally reviewed and discussed with Mr. Whelan. 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 He is seen today for consideration of RT. He has received 6 months of Eligard from Dr. Lima. Stage Prostate adenocarcinoma cT2a [place] 3+4=7 (7/12 cores+) PSA 17.4 stage IIB Performance Status ECOG 1 Plan We had an extensive discussion with Mr. Whelan regarding the diagnosis at hand and available therapeutic options. We discussed the treatment of unfavorable intermediate risk prostate cancer, and the evolution of RT courses over time. We reviewed the options of conventionally fractionated RT versus moderately hypofractionated RT, which have comparable efficacy and side effect profiles. Thus I recommended moderately hypofractionated RT 70 Gy in 28 fractions with VMAT. Given his <10% risk of harboring LN metastases per the IRENA tables I would not include the LN in his course of treatment. This is reinforced by the MRI prostate he has had on 12/19/20 which revealed no suspicious pelvic LN. He has already received a 6 month Eligard injection from Dr. Lima which is the appropriate duration of ADT for this risk grouping. He has some mild BPH symptoms as well as a history of UC/SLE. Given this I don't think he would be appropriate for SBRT. We discussed my strong recommendation for SpaceOAR placement in his case to protect against acute and late rectal toxicity, especially important given his history of IBD. He agreed to the proposed course of RT and SpaceOAR/fiducial placement. We discussed the logistics of receiving radiation therapy in detail including the need for a 1-time planning session. This occurs 1-2 weeks after the SpaceOAR procedure. We reviewed the side effects of treatment including fatigue, irritative voiding symptoms, increase bowel frequency and later rectal toxicities. After discussing the risks, benefits and alternatives to radiation therapy, Mr. Whelan was amenable to pursuing radiotherapy. All questions were answered to the patient's satisfaction. We instructed the patient that if there were any questions,concerns or changes in clinical status in the interim to contact us. Recommendations 70 Gy in 28 fractions with VMAT SpaceOAR and fiducial marker placement Simulation 1-[address]T per Dr[address] Lima Billing Statement Total time of [49] minutes was spent preparing for the visit [3], obtaining HPI [7], examining the patient [3], reviewing diagnostic tests [8], discussing management options [15], coordinating care [3], and writing this note [10]. ROMY JULIEN MD Jan 25, 2021 10:46
== END ==
LOC: M ONCR 08:58
PROVIDERS: ATTEND General Practice
DX: C61 Malignant neoplasm of prostate (principal); E11.22 Type 2 diabetes mellitus with diabetic chronic kidney disease; E78.5 Hyperlipidemia, unspecified; F31.9 Bipolar disorder, unspecified; G47.33 Obstructive sleep apnea (adult) (pediatric); I12.9 Hypertensive chronic kidney disease with stage 1 through stage 4 chronic kidney disease, or unspecified chronic kidney disease; J45.909 Unspecified asthma, uncomplicated; K51.90 Ulcerative colitis, unspecified, without complications; M32.9 Systemic lupus erythematosus, unspecified; N18.9 Chronic kidney disease, unspecified; Z79.899 Other long term (current) drug therapy; Z96.1 Presence of intraocular lens; Z80.42 Family history of malignant neoplasm of prostate

== ENCOUNTER → 2021-02-28 | Outpatient (CLI) | payer MEDICARE ==
[~2021-02-28] MED LIST changes: +CIPR-249 PO; +LIDOCAINE 2% MDV 20ML VIAL XX ONE; +LIDOCAINE VISCOUS 2% SOLN 15ML UDC XX ONE; +LORA1TAB4 PO
--- NOTE | 2021-02-28 11:57 | ROOPDOC ---
[facility] Report Of Operation Report of Operation [facility] Radiation Oncology SpaceOAR & fiducial marker procedure note Name: He Whelan.O.B: [birth year] Procedure diagnosis: C61.0 Prostate cancer Procedure date/time: 02/28/21 1100 Physician: Romy Julien MD Implant(s): Fiducials (2 seeds per needle): Qfix [id number] Lot# [id number] Exp 12/25/2023 Qty 1 SpaceOAR: [id number] Lot# [id number] Exp 06/08/22 Qty 1 Description of procedure: Informed consent for placement of SpaceOAR and fiducial marker seeds (2) was obtained pre-procedure. A timeout was completed. The patient was placed in the high lithotomy position and a rectal exam with 2% viscous lidocaine was completed. The rectal vault was empty of stool. A chlorhexidine prep of the perineal skin was completed. The trans-rectal ultrasound probe was introduced, the prostate and the rectal bulb were well visualized. 2% lidocaine was infiltrated in the skin and soft tissues of the perineum via a 23 Ga spinal needle under ultrasound guidance. 10cc of local was used. Patient tolerated the block well. Next, fiducial marker seeds were placed via pre-loaded 18 Ga needles under ultrasound guidance. 2 seeds were placed at the right posterior base and apex, respectively. A hydro-dissection of the space between the prostate and rectum was conducted by locating Denonvilliers fascia and injecting 10 cc of isotonic saline through an 18 Ga needle into the potential space there to develop a plane for SpaceOAR implant. Once the hydro- dissection was complete, the needle was withdrawn to mid-gland and the implant needle was then checked in the sagittal and transverse planes for optimal position and once verified, the SpaceOAR implant was placed. The implant was noted to have excellent positioning from base to near-apex. The needle was withdrawn and the ultrasound probe was removed from the rectum. Post procedure vital signs were WNL. The patient tolerated the procedure well without significant discomfort. EBL: <1cc Disposition: Simulation for radiation therapy will occur in the next 1-2 weeks The patient will complete antibiotic prophylaxis this evening ROMY JULIEN MD Feb 28, 2021 11:57
== END ==
LOC: M ONCR 10:20
PROVIDERS: ATTEND General Practice
DX: C61 Malignant neoplasm of prostate (principal)
CPT/HCPCS: 55874; 55876; A4648; C1889

== ENCOUNTER → 2021-03-26 | Outpatient (RCR) | payer MEDICARE ==
[~2021-03-26] MED LIST changes: +ALTA1CAP3 PO; +DONE-1 PO; -DONETAB6 PO; +EFFE37.5 PO; +INVE3TAB2 PO; -LIDOCAINE 2% MDV 20ML VIAL XX ONE; -LIDOCAINE VISCOUS 2% SOLN 15ML UDC XX ONE; +METF500T13 PO; +PLAQ200T4 PO; +SULF500T2 PO
== END ==
LOC: M ONCR 03-14 13:47
PROVIDERS: ATTEND General Practice
DX: C61 Malignant neoplasm of prostate (principal)

== ENCOUNTER 2021-03-27 10:42 | Emergency (ER) | payer MEDICARE ==
[~2021-03-27] VITALS: Ht 177.8 cm; Wt 115.9 kg
[~2021-03-27 10:42] MED LIST changes: -ALTA1CAP3 PO; -DONE-1 PO; +DONETAB6 PO; -EFFE37.5 PO; -INVE3TAB2 PO; -METF500T13 PO; -PLAQ200T4 PO; -SULF500T2 PO
[2021-03-27] MEDS ORDERED: METF500T13 PO (11:31)
[2021-03-27] MEDS ORDERED: EFFE37.5 PO (11:31)
[2021-03-27] MEDS ORDERED: ALTA1CAP3 PO (11:31)
[2021-03-27] MEDS ORDERED: SULF500T2 PO (11:31)
[2021-03-27] MEDS ORDERED: INVE3TAB2 PO (11:31)
[2021-03-27] MEDS ORDERED: PLAQ200T4 PO (11:31)
[2021-03-27 11:59] LABS: BASO % 0.4 % (0.0-1.0); EOS % 0.3 % (0.0-3.0); HEMATOCRIT 41.9 % (42.0-52.0); HEMOGLOBIN 13.5 g/dl (13.5-17.5); LYMPH # 0.9 10^3/uL (1.5-5.0); LYMPH % 9.2 % (24.0-44.0); MEAN CORPUSCULAR HEMOGLOBIN 30.9 pg (27.0-33.0); MEAN CORPUSCULAR HGB CONC 32.2 g/dl (32.0-36.5); MEAN CORPUSCULAR VOLUME 95.9 fl (80.0-96.0); MONO # 1.1 10^3/uL (0.0-0.8); MONO % 11.9 % (2.0-8.0); NEUTROPHILS # 7.3 10^3/uL (1.5-8.5); NEUTROPHILS % 77.6 % (36.0-66.0); PLATELET COUNT, AUTOMATED 162 10^3/uL (150-450); RED BLOOD COUNT 4.37 10^6/uL (4.30-6.10); WHITE BLOOD COUNT 9.4 10^3/uL (4.0-10.0)
--- NOTE | 2021-03-27 12:18 | REPVR ---
PROCEDURE INFORMATION: Exam: CT Head Without Contrast Exam date and time: 03/27/2021 11:19 AM Age: 75 years old Clinical indication: Injury or trauma; Fall; Blunt trauma (contusions or hematomas); Additional info: Dr barnes fall TECHNIQUE: Imaging protocol: Computed tomography of the head without contrast. Radiation optimization: All CT scans at this facility use at least one of these dose optimization techniques: automated exposure control; mA and/or kV adjustment per patient size (includes targeted exams where dose is matched to clinical indication); or iterative reconstruction. COMPARISON: CT Head without contrast 10/29/2015 6:17 PM FINDINGS: Brain: There is no acute intracranial hemorrhage or mass effect. Moderate diffuse volume loss is within the range of normal for patient age. There are small vessel ischemic changes within the periventricular and subcortical white matter, but the normal rosenthal-white matter delineation is maintained. Chronic lacunar infarct involves the left thalamus. Cerebral ventricles: Prominence of the ventricular system is commensurate with volume loss. Paranasal sinuses: There is minimal fluid along the floor of the left frontal sinus. There is moderate ethmoid and left maxillary sinus mucosal thickening. There is mild sphenoid and right maxillary sinus mucosal thickening. Mastoid air cells: Visualized mastoid air cells are well aerated. Bones/joints: Unremarkable. No acute fracture. Soft tissues: Unremarkable. IMPRESSION: No acute hemorrhage or calvarial fracture. Electronically signed by: Becky Chester On 03/27/2021 12:18:13 PM
--- NOTE | 2021-03-27 12:29 | REPVR ---
PROCEDURE INFORMATION: Exam: CT Cervical Spine Without Contrast Exam date and time: 03/27/2021 11:19 AM Age: 75 years old Clinical indication: Injury or trauma; Fall; Blunt trauma; Additional info: Dr barnes fall TECHNIQUE: Imaging protocol: Computed tomography images of the cervical spine without contrast. Radiation optimization: All CT scans at this facility use at least one of these dose optimization techniques: automated exposure control; mA and/or kV adjustment per patient size (includes targeted exams where dose is matched to clinical indication); or iterative reconstruction. COMPARISON: None available. FINDINGS: Bones/joints: There is straightening of the normal cervical lordosis. No acute fracture. Normal alignment. Discs/Spinal canal/Neural foramina: There is severe intervertebral disc space loss at C4/5, C5/6 and C6/7. There is ventral osteophyte formation and dorsal spondylitic ridging. There is multilevel facet hypertrophy. There is multilevel moderate to severe neural foraminal narrowing. Lungs: Lung apices are normal. Soft tissues: Unremarkable. IMPRESSION: No acute fracture. Electronically signed by: Becky Chester On 03/27/2021 12:28:36 PM
[2021-03-27 12:38] LABS: ALBUMIN 3.5 GM/DL (3.2-5.2); ALT/SGPT 75 U/L (12-78); BILIRUBIN,DIRECT 0.2 MG/DL (0.0-0.2); BILIRUBIN,TOTAL 0.7 MG/DL (0.2-1.0); BLOOD UREA NITROGEN 36 MG/DL (7-18); CALCIUM LEVEL 10.3 MG/DL (8.8-10.2); CARBON DIOXIDE LEVEL 19 MEQ/L (21-32); CHLORIDE LEVEL 107 MEQ/L (98-107); CK-MB VALUE MASS 4.9 NG/ML (<3.6); CPK CREATINE PHOSPHOKINASE 395 U/L (39-308); CREATININE FOR GFR 1.55 MG/DL (0.70-1.30); GLUCOSE, FASTING 122 MG/DL (70-100); MB/CK RELATIVE INDEX 1.24 (< OR =4); POTASSIUM SERUM 5.1 MEQ/L (3.5-5.1); SODIUM LEVEL 135 MEQ/L (136-145); TROPONIN I < 0.02 NG/ML (< 0.10)
--- NOTE | 2021-03-27 12:52 | REP ---
INDICATION: fall dr Ricci. COMPARISON: CT 10/29/2015, radiographs 06/11/2020. TECHNIQUE: Single portable AP view of the chest was performed. FINDINGS: No acute infiltrate is seen. There is a large hiatal hernia with prominent cardiophrenic fat pads. The mediastinal silhouette is unchanged. IMPRESSION: No acute pulmonary disease. <Electronically signed by Moise Reddy > 03/27/21 [id number]
--- NOTE | 2021-03-27 13:03 | REP ---
INDICATION: fall dr barnes. COMPARISON: None. TECHNIQUE: Four views of the left tibia and fibula. FINDINGS: Four views of the left calf demonstrate a transversely oriented slightly impacted nondisplaced fracture of the proximal fibular head. there is osteoarthritis at the knee with joint space narrowing and spur formation medially. Some chondrocalcinosis is noted medially. There is plantar calcaneal spurring and midfoot arthropathy is noted at the edge of the film. Vascular calcification is observed. No tibial fracture is appreciated. No opaque foreign body noted. IMPRESSION: Proximal fibular head fracture slightly impacted. 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 Heel spurring. Vascular calcification. <Electronically signed by Doc Werner > 03/27/21 [id number]
--- NOTE | 2021-03-27 13:05 | REP ---
INDICATION: fall dr barnes. COMPARISON: None. TECHNIQUE: Four views of the left femur are provided. FINDINGS: Four views of the left femur demonstrate osteoarthritic change at the knee. No fracture or subluxation is seen. There are surgical clips in the lower pelvis. Hip joint space is preserved. Periarticular soft tissues are unremarkable. IMPRESSION: Osteoarthritis at the knee. No femur fracture seen. <Electronically signed by Doc Werner > 03/27/21 [id number]
[2021-03-27] MEDS ORDERED: D5W/0.45% SODIUM CHLORIDE 1,000 ML IV ONE (15:00)
[2021-03-27 17:16] VITALS: BP 170/95
--- NOTE | 2021-03-27 19:35 | ECGEPIP ---
[facility] - ED Test Date: 2021-03-27 Pat Name: BRIE RIVERO Department: Room: - Gender: Male Supply Tech: MADHAV : [id number] Requested By: Daniele Chu Order Number: [id number] Reading MD: Daniele Chu Measurements Intervals [place] Rate: 110 P: 10 TN: 180 QRS: -13 QRSD: 84 T: 11 QT: 360 QTc: 487 Interpretive Statements Sinus tachycardia with premature atrial complexes Low voltage QRS Septal infarct , age undetermined Inferior infarct , age undetermined Baseline artifact may affect reading cw 08/20/[address] T wave changes Electronically Signed on 03-27-2021 19:35:40 EDT by Daniele Chu
== END 2021-03-27 17:26 | disposition short-term general hospital (02) ==
LOC: M ED 10:42 → EDBD 10:42 → M ED 17:26
DX: U07.1 COVID-19 (principal); S82.832A Other fracture of upper and lower end of left fibula, initial encounter for closed fracture; M17.12 Unilateral primary osteoarthritis, left knee; R53.1 Weakness; M77.32 Calcaneal spur, left foot; I70.202 Unspecified atherosclerosis of native arteries of extremities, left leg; R00.0 Tachycardia, unspecified; W01.0XXA Fall on same level from slipping, tripping and stumbling without subsequent striking against object, initial encounter; Y92.099 Unspecified place in other non-institutional residence as the place of occurrence of the external cause; Y93.9 Activity, unspecified; Y99.9 Unspecified external cause status; E11.9 Type 2 diabetes mellitus without complications; Z86.73 Personal history of transient ischemic attack (TIA), and cerebral infarction without residual deficits; I10 Essential (primary) hypertension; K21.9 Gastro-esophageal reflux disease without esophagitis; C61 Malignant neoplasm of prostate; Z92.3 Personal history of irradiation; Z79.899 Other long term (current) drug therapy

== ENCOUNTER → 2021-06-18 | Outpatient (CLI) | payer MEDICARE ==
[~2021-06-18] MED LIST changes: +ALTA1CAP3 PO; +EFFE37.5 PO; +INVE3TAB2 PO; +METF500T13 PO; +PLAQ200T4 PO; +SULF500T2 PO
--- NOTE | 2021-06-18 09:30 | REP ---
INDICATION: HISTORY OF COVID 19 COMPARISON: 03/27/2021 TECHNIQUE: PA and lateral. FINDINGS: Mediastinum and cardiac silhouette are stable with cardiomegaly and large hiatal hernia again noted. Lung hamm demonstrate chronic changes without acute focal consolidation. No obvious effusion. No pneumothorax. IMPRESSION: No definite acute cardiopulmonary process. <Electronically signed by Kit Moraes > 06/18/21 [id number]
[2021-06-18 10:37] LABS: BASO # 0.1 10^3/uL (0.0-0.2); BASO % 1.1 % (0.0-1.0); EOS # 0.2 10^3/uL (0.0-0.5); EOS % 2.3 % (0.0-3.0); HEMATOCRIT 42.4 % (42.0-52.0); HEMOGLOBIN 13.6 g/dl (13.5-17.5); LYMPH # 1.9 10^3/uL (1.5-5.0); LYMPH % 19.7 % (24.0-44.0); MEAN CORPUSCULAR HEMOGLOBIN 30.8 pg (27.0-33.0); MEAN CORPUSCULAR HGB CONC 32.1 g/dl (32.0-36.5); MEAN CORPUSCULAR VOLUME 96.1 fl (80.0-96.0); MONO # 1.1 10^3/uL (0.0-0.8); MONO % 11.9 % (2.0-8.0); NEUTROPHILS # 6.1 10^3/uL (1.5-8.5); NEUTROPHILS % 64.6 % (36.0-66.0); PLATELET COUNT, AUTOMATED 197 10^3/uL (150-450); RED BLOOD COUNT 4.41 10^6/uL (4.30-6.10); WHITE BLOOD COUNT 9.5 10^3/uL (4.0-10.0)
[2021-06-18 11:09] LABS: ALBUMIN 3.5 GM/DL (3.2-5.2); BILIRUBIN,TOTAL 0.3 MG/DL (0.2-1.0); CREATININE FOR GFR 1.43 MG/DL (0.70-1.30); GLOMERULAR FILTRATION RATE 51.6 (>42); POTASSIUM SERUM 4.8 MEQ/L (3.5-5.1); TOTAL PROTEIN 7.5 GM/DL (6.4-8.2)
== END ==
LOC: M PLAIMG 08:50
PROVIDERS: ATTEND Internal Medicine
DX: I51.7 Cardiomegaly (principal); K44.9 Diaphragmatic hernia without obstruction or gangrene; I12.9 Hypertensive chronic kidney disease with stage 1 through stage 4 chronic kidney disease, or unspecified chronic kidney disease; K51.90 Ulcerative colitis, unspecified, without complications; Z86.16 Personal history of COVID-19

== ENCOUNTER → 2021-07-16 | Outpatient (CLI) | payer MEDICARE ==
[2021-07-16 11:23] LABS: HEMOGLOBIN A1c 5.5 %
[2021-07-16 11:33] LABS: CREATININE, URINE 57.2 MG/DL; MALB URINE SIEMENS 33.3 MG/L; MAU/CREAT RATIO 58.2 MCG/MG (0.0-30.0)
[2021-07-16 11:44] LABS: ALBUMIN 3.5 GM/DL (3.2-5.2); BILIRUBIN,TOTAL 0.3 MG/DL (0.2-1.0); C REACTIVE PROTEIN QUANTITATIV 2.03 MG/DL (0.00-0.30); CALCIUM LEVEL 10.7 MG/DL (8.8-10.2); CHOLESTEROL RISK RATIO 3.032 (<5); CREATININE FOR GFR 1.35 MG/DL (0.70-1.30); GLOMERULAR FILTRATION RATE 55.2 (>42); MAGNESIUM LEVEL 2.1 MG/DL (1.8-2.4); POTASSIUM SERUM 4.5 MEQ/L (3.5-5.1); TOTAL PROTEIN 7.4 GM/DL (6.4-8.2)
== END ==
LOC: M PLALAB 09:11
PROVIDERS: ATTEND Internal Medicine
DX: I12.9 Hypertensive chronic kidney disease with stage 1 through stage 4 chronic kidney disease, or unspecified chronic kidney disease (principal); M32.9 Systemic lupus erythematosus, unspecified; E11.9 Type 2 diabetes mellitus without complications

== ENCOUNTER → 2021-09-25 | Outpatient (CLI) | payer MEDICARE ==
[~2021-09-25] MED LIST changes: +DONE-1 PO; -DONETAB6 PO
== END ==
LOC: M ONCR 13:47
PROVIDERS: ATTEND General Practice
DX: C61 Malignant neoplasm of prostate (principal); Z79.899 Other long term (current) drug therapy; Z86.16 Personal history of COVID-19; Z92.3 Personal history of irradiation

== ENCOUNTER → 2021-09-25 | Outpatient (CLI) | payer MEDICARE | LOC: M PLALAB 14:47 | PROVIDERS: ATTEND General Practice | DX: C61 Malignant neoplasm of prostate (principal) ==

== ENCOUNTER → 2021-10-24 | Outpatient (RCR) | payer MEDICARE | LOC: M ONCR 10-03 07:32 | PROVIDERS: ATTEND General Practice | DX: C61 Malignant neoplasm of prostate (principal) ==

== ENCOUNTER 2021-10-25 13:54 | Outpatient (RCR) | payer MEDICARE | END 2021-11-23 | LOC: M ONCR 13:54 | PROVIDERS: ATTEND General Practice | DX: C61 Malignant neoplasm of prostate (principal) ==

== ENCOUNTER 2022-01-24 10:46 | Inpatient (IN) | payer MEDICARE ==
[~2022-01-24] VITALS: Ht 172.7 cm; Wt 111.4 kg
[~2022-01-24 10:46] MED LIST changes: -ACET-907 PO; -AMOX875T2 PO; -BUPR300T92 PO; -DONE10TA90 PO; -FLOM0.4C39 PO; -FLUT1BLS3 INH; -GABA-282 PO; -IRBE300T7 PO; -IRON65TA2 PO; -METF750T36 PO; -MONT10TA97 PO
[2022-01-24] MEDS ORDERED: cefTRIAXone SOD 2 GM in D5W MINI-BAG PLUS 50 ML IV ONE (11:00)
[2022-01-24] MEDS ORDERED: NS IV ONE (11:00)
[2022-01-24 11:39] LABS: VENOUS BASE EXCESS -0.2 (-2.0-2.0); VENOUS HCO3 22.7 MEQ/L (23.0-27.0); VENOUS O2 SATURATION 98.4 % (60.0-80.0); VENOUS PARTIAL PRESSURE CO2 31.1 mmHg (38.0-50.0); VENOUS PARTIAL PRESSURE O2 114.6 mmHg (30.0-50.0); VENOUS PH 7.481 UNITS (7.330-7.430); VENOUS STANDARD HCO3 24.3 MEQ/L; VENOUS TOTAL CO2 23.6 MEQ/L (24.0-28.0)
[2022-01-24 11:44] LABS: BASO # 0.1 10^3/uL (0.0-0.2); BASO % 0.9 % (0.0-1.0); EOS # 0.1 10^3/uL (0.0-0.5); EOS % 1.6 % (0.0-3.0); HEMATOCRIT 31.1 % (42.0-52.0); HEMOGLOBIN 9.4 g/dl (13.5-17.5); LYMPH # 0.8 10^3/uL (1.5-5.0); LYMPH % 9.5 % (24.0-44.0); MEAN CORPUSCULAR HEMOGLOBIN 26.6 pg (27.0-33.0); MEAN CORPUSCULAR HGB CONC 30.2 g/dl (32.0-36.5); MEAN CORPUSCULAR VOLUME 87.9 fl (80.0-96.0); MONO # 1.3 10^3/uL (0.0-0.8); MONO % 14.2 % (2.0-8.0); NEUTROPHILS # 6.5 10^3/uL (1.5-8.5); NEUTROPHILS % 73.2 % (36.0-66.0); PLATELET COUNT, AUTOMATED 237 10^3/uL (150-450); RED BLOOD COUNT 3.54 10^6/uL (4.30-6.10); WHITE BLOOD COUNT 8.8 10^3/uL (4.0-10.0)
[2022-01-24 12:01] LABS: INR 1.09; PROTHROMBIN TIME 14.5 SECONDS (12.7-14.5)
[2022-01-24 12:02] LABS: PARTIAL THROMBOPLASTIN TIME 34.5 SECONDS (25.9-37.0)
[2022-01-24 12:14] LABS: CK-MB VALUE MASS 1.4 NG/ML (<3.6); MB/CK RELATIVE INDEX 2.03 (< OR =4)
[2022-01-24 12:23] LABS: ALBUMIN 2.8 GM/DL (3.2-5.2); ALT/SGPT 14 U/L (12-78); AMYLASE 47 U/L (25-115); BILIRUBIN,DIRECT < 0.1 MG/DL (0.0-0.2); BILIRUBIN,TOTAL 0.3 MG/DL (0.2-1.0); BLOOD UREA NITROGEN 21 MG/DL (7-18); C REACTIVE PROTEIN QUANTITATIV 8.22 MG/DL (0.00-0.30); CALCIUM LEVEL 9.8 MG/DL (8.8-10.2); CARBON DIOXIDE LEVEL 22 MEQ/L (21-32); CHLORIDE LEVEL 106 MEQ/L (98-107); CREATININE FOR GFR 1.47 MG/DL (0.70-1.30); GLOMERULAR FILTRATION RATE 49.9 (>42); GLUCOSE, FASTING 169 MG/DL (70-100); POTASSIUM SERUM 3.3 MEQ/L (3.5-5.1); SODIUM LEVEL 140 MEQ/L (136-145); TOTAL PROTEIN 7.1 GM/DL (6.4-8.2)
[2022-01-24] MEDS ORDERED: ISOVUE-370 76% 100ML VIAL As Ordered ONE (13:17)
[2022-01-24 13:21] LABS: APPEARANCE, URINE HAZY (CLEAR); BACTERIA, URINE AUTO NEGATIVE (NEGATIVE); BILIRUBIN, URINE AUTO NEGATIVE (NEGATIVE); BLOOD, URINE BLOOD NEGATIVE (NEGATIVE); COLOR, URINE AMBER (YELLOW); GLUCOSE, URINE (UA) AUTO NEGATIVE (NEGATIVE); GRANULAR CAST, URINE AUTO 1 /LPF; KETONE, URINE AUTO NEGATIVE (NEGATIVE); LEUKOCYTE ESTERASE, URINE AUTO NEGATIVE (NEGATIVE); MUCUS, URINE SMALL (NEGATIVE); NITRITE, URINE AUTO NEGATIVE (NEGATIVE); PROTEIN, URINE AUTO 1+ mg/dL (NEGATIVE); RBC, URINE AUTO 0 /HPF (0-3); SPECIFIC GRAVITY URINE AUTO 1.012 (1.002-1.035); SQUAMOUS EPITHELIAL CELL UR AU 1 /HPF (0-6); TRANSITIONAL EPITHELIAL AUTO <1 /HPF; UROBILINOGEN, URINE AUTO 0.2 mg/dL (0.0-2.0); WBC, URINE AUTO 0 /HPF (0-3)
[2022-01-24] MEDS ORDERED: FLOM0.4C39 PO (16:21)
[2022-01-24] MEDS ORDERED: BUPR300T92 PO (16:21)
[2022-01-24] MEDS ORDERED: GABA-282 PO (16:21)
[2022-01-24] MEDS ORDERED: METF750T36 PO (16:21)
[2022-01-24] MEDS ORDERED: FLUT1BLS3 INH (16:21)
[2022-01-24] MEDS ORDERED: MONT10TA97 PO (16:21)
[2022-01-24] MEDS ORDERED: ACET-907 PO (16:22)
[2022-01-24] MEDS ORDERED: IRON65TA2 PO (16:22)
[2022-01-24] MEDS ORDERED: IRBE300T7 PO (16:24)
[2022-01-24] MEDS ORDERED: DONE10TA90 PO (16:38)
[2022-01-24] MEDS ORDERED: HOME MED LIST COMPLETE! XX SCH (16:40)
[2022-01-24] MEDS ORDERED: INSULIN LISPRO (NovoLOG) PER UNIT SC SCH ×2 (17:30→21:00)
[2022-01-24] MEDS ORDERED: ALBUTEROL SULFATE 2.5 MG/0.5 ML INH NEB SOLN NEB PRN (17:40)
[2022-01-24] MEDS ORDERED: FLEET ENEMA PR ONE (17:40)
[2022-01-24] MEDS ORDERED: GLUCAGON INJ 1MG VIAL SC PRN (17:45)
[2022-01-24] MEDS ORDERED: DEXTROSE 50% 50 ML SYRINGE IV PRN (17:45)
[2022-01-24] MEDS ORDERED: GLUCOSE 4GM CHEW TABLET PO PRN (17:45)
[2022-01-24] MEDS ORDERED: PIPERACILLIN/TAZOBACTAM SOD 3.375 GM in D5W MINI-BAG PLUS 50 ML IV SCH (18:00)
[2022-01-24] MEDS ORDERED: POTASSIUM CHLORIDE 10MEQ SR TABLET PO ONE (19:15)
[2022-01-24] MEDS ORDERED: AMOX875T2 PO (19:20)
[2022-01-24] MEDS: ADVAIR HFA 230/21MCG INHALER INH SCH (19:47)
[2022-01-24 19:51] VITALS: BP 138/76
[2022-01-24] MEDS ORDERED: TAMSULOSIN 0.4 MG CAP PO SCH (21:00)
[2022-01-24] MEDS ORDERED: GABAPENTIN 300 MG CAP PO SCH (21:00)
[2022-01-24] MEDS ORDERED: OMEPRAZOLE 20MG CAP PO SCH (21:00)
[2022-01-24] MEDS ORDERED: SENOKOT S TAB PO SCH (21:00)
[2022-01-24] MEDS ORDERED: HYDROXYCHLOROQUINE 200 MG TAB PO SCH (21:00)
[2022-01-24] MEDS ORDERED: ARIPiprazole 15 MG TAB (AbiLIFY) PO SCH (21:00)
[2022-01-25] MEDS: ADVAIR HFA 230/21MCG INHALER INH SCH (08:00)
[2022-01-25] MEDS: ALBUTEROL SULFATE 2.5 MG/0.5 ML INH NEB SOLN NEB SCH ×2 (08:00→14:00)
[2022-01-25] MEDS ORDERED: MONTELUKAST 10 MG TAB PO SCH (09:00)
[2022-01-25] MEDS ORDERED: buPROPion **XL** TABLET 150MG (WELLBUTRIN XL) PO SCH (09:00)
[2022-01-25] MEDS ORDERED: ENOXAPARIN 40MG/0.4ML SYRINGE (J1650 PER 10MG) SC SCH (09:00)
== END 2022-01-24 20:06 | disposition home or self-care (01) | DRG 864 ==
LOC: M ED 10:46 → M ED INP 16:15 → ENRESERV 17:15
PROVIDERS: ADMIT Internal Medicine Nephrology; ATTEND Internal Medicine Nephrology
DX: R50.9 Fever, unspecified (principal); K51.90 Ulcerative colitis, unspecified, without complications; J45.909 Unspecified asthma, uncomplicated; E11.22 Type 2 diabetes mellitus with diabetic chronic kidney disease; I12.9 Hypertensive chronic kidney disease with stage 1 through stage 4 chronic kidney disease, or unspecified chronic kidney disease; G47.33 Obstructive sleep apnea (adult) (pediatric); N18.30 Chronic kidney disease, stage 3 unspecified; M32.9 Systemic lupus erythematosus, unspecified; N40.1 Benign prostatic hyperplasia with lower urinary tract symptoms; C61 Malignant neoplasm of prostate; Z92.23 Personal history of estrogen therapy; Z86.16 Personal history of COVID-19; Z79.84 Long term (current) use of oral hypoglycemic drugs; Z79.899 Other long term (current) drug therapy; E66.9 Obesity, unspecified; K74.60 Unspecified cirrhosis of liver; H35.30 Unspecified macular degeneration; E53.8 Deficiency of other specified B group vitamins; E78.5 Hyperlipidemia, unspecified; Z85.828 Personal history of other malignant neoplasm of skin; M50.30 Other cervical disc degeneration, unspecified cervical region; Z20.822 Contact with and (suspected) exposure to COVID-19; Z98.41 Cataract extraction status, right eye; Z98.42 Cataract extraction status, left eye; K44.9 Diaphragmatic hernia without obstruction or gangrene; E11.42 Type 2 diabetes mellitus with diabetic polyneuropathy; E61.1 Iron deficiency; F31.9 Bipolar disorder, unspecified

== ENCOUNTER → 2022-01-24 | Outpatient (CLI) | payer MEDICARE ==
[~2022-01-24] MED LIST changes: +ACET-907 PO; +ALBU2.5V10 INH; -ALBU83IN INH; +AMOX875T2 PO; +BUPR300T92 PO; -CLAR5TAB PO; +DESL5TAB28 PO; +DONE10TA90 PO; +FLOM0.4C39 PO; +FLUT1BLS3 INH; +GABA-282 PO; +IRBE300T7 PO; +IRON65TA2 PO; +METF750T36 PO; +MONT10TA97 PO
== END ==
LOC: M ONCR 10:05
PROVIDERS: ATTEND General Practice
DX: R06.82 Tachypnea, not elsewhere classified (principal); R19.7 Diarrhea, unspecified; R65.10 Systemic inflammatory response syndrome (SIRS) of non-infectious origin without acute organ dysfunction; C61 Malignant neoplasm of prostate; R05.9 Cough, unspecified; Z92.3 Personal history of irradiation

== ENCOUNTER 2022-03-20 12:17 | Inpatient (IN) | payer MEDICARE ==
[~2022-03-20] VITALS: Ht 172.7 cm; Wt 104.3 kg
[~2022-03-20 12:17] MED LIST changes: +ACET-907 PO; +AMOX875T2 PO; +BUPR300T92 PO; +DONE10TA90 PO; +FLOM0.4C39 PO; +FLUT1BLS3 INH; +GABA-282 PO; +IRBE300T7 PO; +IRON65TA2 PO; +METF750T36 PO; +MONT10TA97 PO
[2022-03-20] MEDS: NS 1,000 ML IV SCH ×2 (12:35→22:06)
[2022-03-20 13:23] LABS: BASO # 0.1 10^3/uL (0.0-0.2); BASO % 1.2 % (0.0-1.0); EOS # 0.2 10^3/uL (0.0-0.5); HEMATOCRIT 32.7 % (42.0-52.0); HEMOGLOBIN 9.9 g/dl (13.5-17.5); LYMPH % 17.8 % (24.0-44.0); MEAN CORPUSCULAR HEMOGLOBIN 26.5 pg (27.0-33.0); MEAN CORPUSCULAR HGB CONC 30.3 g/dl (32.0-36.5); MEAN CORPUSCULAR VOLUME 87.7 fl (80.0-96.0); MONO # 0.6 10^3/uL (0.0-0.8); MONO % 10.5 % (2.0-8.0); NEUTROPHILS # 3.8 10^3/uL (1.5-8.5); NEUTROPHILS % 66.6 % (36.0-66.0); PLATELET COUNT, AUTOMATED 225 10^3/uL (150-450); RED BLOOD COUNT 3.73 10^6/uL (4.30-6.10); WHITE BLOOD COUNT 5.7 10^3/uL (4.0-10.0)
[2022-03-20 13:34] LABS: INR 0.99; PROTHROMBIN TIME 13.5 SECONDS (12.7-14.5)
[2022-03-20 13:35] LABS: PARTIAL THROMBOPLASTIN TIME 24.2 SECONDS (25.9-37.0)
[2022-03-20 13:57] LABS: ALBUMIN 2.5 GM/DL (3.2-5.2); BILIRUBIN,DIRECT 0.1 MG/DL (0.0-0.2); BILIRUBIN,TOTAL 0.2 MG/DL (0.2-1.0); CALCIUM LEVEL 9.2 MG/DL (8.8-10.2); CREATININE FOR GFR 1.71 MG/DL (0.70-1.30); GLOMERULAR FILTRATION RATE 41.9 (>42); POTASSIUM SERUM 3.9 MEQ/L (3.5-5.1); TOTAL PROTEIN 6.3 GM/DL (6.4-8.2)
[2022-03-20] MEDS ORDERED: PROAAER10 INH (15:33)
[2022-03-20] MEDS ORDERED: HOME MED LIST COMPLETE! XX SCH (15:35)
[2022-03-20 15:58] LABS: RSV AMPLIFICATION NEGATIVE (NEGATIVE)
[2022-03-20 17:34] LABS: CK-MB VALUE MASS 3.2 NG/ML (<3.6); MB/CK RELATIVE INDEX 3.86 (< OR =4)
[2022-03-20] MEDS ORDERED: ASPIRIN 325 MG TAB PO ONE (18:15)
[2022-03-20] MEDS ORDERED: ALBUTEROL 90 MCG/ACT 8GM HFA INHALER INH PRN (18:15)
[2022-03-20] MEDS: ATORVASTATIN 20 MG TAB PO SCH (18:36)
[2022-03-20] MEDS: ACETAMINOPHEN 325 MG TAB PO SCH (21:00)
[2022-03-20] MEDS ORDERED: ARIPiprazole 15 MG TAB (AbiLIFY) PO SCH (21:00)
[2022-03-20] MEDS ORDERED: OMEPRAZOLE 20MG CAP PO SCH (21:00)
[2022-03-20] MEDS ORDERED: TAMSULOSIN 0.4 MG CAP PO SCH (21:00)
[2022-03-20] MEDS ORDERED: GABAPENTIN 300 MG CAP PO SCH (21:00)
[2022-03-20] MEDS ORDERED: MONTELUKAST 10 MG TAB PO SCH (21:00)
[2022-03-20 21:45] VITALS: BP 106/68
[2022-03-20] MEDS: HEPARIN SOD (PORCINE) 5000UNITS/ML 1ML VIAL/SYRINGE SC SCH (22:05)
[2022-03-20] MEDS: HYDROXYCHLOROQUINE 200 MG TAB PO SCH (22:40)
[2022-03-20 23:40] VITALS: BP 105/67
[2022-03-21 04:10] VITALS: BP 119/75
[2022-03-21 04:58] LABS: ALBUMIN 2.4 GM/DL (3.2-5.2); BILIRUBIN,TOTAL 0.2 MG/DL (0.2-1.0); CREATININE FOR GFR 1.4 MG/DL (0.70-1.30); GLOMERULAR FILTRATION RATE 52.7 (>42); PHOSPHORUS LEVEL 2.8 MG/DL (2.5-4.9); POTASSIUM SERUM 4.1 MEQ/L (3.5-5.1); TOTAL PROTEIN 5.9 GM/DL (6.4-8.2)
[2022-03-21] MEDS: HEPARIN SOD (PORCINE) 5000UNITS/ML 1ML VIAL/SYRINGE SC SCH (05:23)
[2022-03-21 07:19] VITALS: BP 120/77
[2022-03-21] MEDS ORDERED: ASPI-1 PO (08:59)
[2022-03-21] MEDS ORDERED: ATOR1TAB21 PO (08:59)
[2022-03-21] MEDS ORDERED: METO1TAB87 PO (08:59)
[2022-03-21] MEDS ORDERED: buPROPion **XL** TABLET 150MG (WELLBUTRIN XL) PO SCH (09:00)
[2022-03-21] MEDS ORDERED: FERROUS SULFATE 325MG TAB PO SCH (09:00)
[2022-03-21] MEDS ORDERED: ASPIRIN 81 MG CHEW TABLET PO SCH (09:00)
[2022-03-21] MEDS ORDERED: FUROSEMIDE 20 MG TAB PO SCH (09:00)
[2022-03-21] MEDS ORDERED: ASPIRIN 325 MG TAB PO SCH (09:00)
[2022-03-21] MEDS: ACETAMINOPHEN 325 MG TAB PO SCH (10:07)
[2022-03-21] MEDS: HYDROXYCHLOROQUINE 200 MG TAB PO SCH (10:07)
[2022-03-21] MEDS: ATORVASTATIN 20 MG TAB PO SCH (10:08)
== END 2022-03-21 11:21 | disposition home health service (06) | DRG 309 ==
LOC: EDBD 12:17 → M ED 12:17 → M ED INP 18:13 → M PCU 21:48
PROVIDERS: ADMIT Internal Medicine; ATTEND Internal Medicine
DX: R00.0 Tachycardia, unspecified (principal); K51.90 Ulcerative colitis, unspecified, without complications; I24.8 Other forms of acute ischemic heart disease; J45.909 Unspecified asthma, uncomplicated; E11.22 Type 2 diabetes mellitus with diabetic chronic kidney disease; I12.9 Hypertensive chronic kidney disease with stage 1 through stage 4 chronic kidney disease, or unspecified chronic kidney disease; G47.30 Sleep apnea, unspecified; N18.30 Chronic kidney disease, stage 3 unspecified; M32.9 Systemic lupus erythematosus, unspecified; E66.9 Obesity, unspecified; K74.60 Unspecified cirrhosis of liver; N40.1 Benign prostatic hyperplasia with lower urinary tract symptoms; G25.81 Restless legs syndrome; H35.30 Unspecified macular degeneration; E53.8 Deficiency of other specified B group vitamins; F31.9 Bipolar disorder, unspecified; E78.5 Hyperlipidemia, unspecified; K21.9 Gastro-esophageal reflux disease without esophagitis; Z85.820 Personal history of malignant melanoma of skin; M50.30 Other cervical disc degeneration, unspecified cervical region; Z86.16 Personal history of COVID-19; Z98.41 Cataract extraction status, right eye; Z98.42 Cataract extraction status, left eye; Z85.46 Personal history of malignant neoplasm of prostate; E11.40 Type 2 diabetes mellitus with diabetic neuropathy, unspecified; D64.9 Anemia, unspecified; G31.84 Mild cognitive impairment of uncertain or unknown etiology; Z79.84 Long term (current) use of oral hypoglycemic drugs; Z79.899 Other long term (current) drug therapy; Z68.35 Body mass index [BMI] 35.0-35.9, adult

== ENCOUNTER → 2022-05-09 | Outpatient (CLI) | payer MEDICARE ==
[~2022-05-09] MED LIST changes: +ASPI-1 PO; +ATOR1TAB21 PO; +METO1TAB87 PO; +PROAAER10 INH
[2022-05-09 14:08] LABS: HEMATOCRIT 31.8 % (42.0-52.0); HEMOGLOBIN 9.7 g/dl (13.5-17.5); MEAN CORPUSCULAR HEMOGLOBIN 28.9 pg (27.0-33.0); MEAN CORPUSCULAR HGB CONC 30.5 g/dl (32.0-36.5); MEAN CORPUSCULAR VOLUME 94.6 fl (80.0-96.0); PLATELET COUNT, AUTOMATED 192 10^3/uL (150-450); RED BLOOD COUNT 3.36 10^6/uL (4.30-6.10); WHITE BLOOD COUNT 5.1 10^3/uL (4.0-10.0)
[2022-05-09 15:00] LABS: MALB URINE SIEMENS 37.4 MG/L; MAU/CREAT RATIO 70.5 MCG/MG (0.0-30.0)
[2022-05-09 15:02] LABS: ALBUMIN 3.2 GM/DL (3.2-5.2); BILIRUBIN,TOTAL 0.2 MG/DL (0.2-1.0); C REACTIVE PROTEIN QUANTITATIV 0.3 MG/DL (0.00-0.30); CALCIUM LEVEL 9.7 MG/DL (8.8-10.2); CHOLESTEROL RISK RATIO 2.573 (<5); CREATININE FOR GFR 1.42 MG/DL (0.70-1.30); FREE T4 1.31 NG/DL (0.76-1.46); GLOMERULAR FILTRATION RATE 51.9 (>42); PERCENT SATURATION 5.9 % (19.7-50.0); POTASSIUM SERUM 3.9 MEQ/L (3.5-5.1); THYROID STIMULATING HORMONE 1.73 uIU/ML (0.358-3.740)
[2022-05-09 15:33] LABS: TOTAL 25(OH) VITAMIN D 77.3 NG/ML (30.0-100.0)
[2022-05-09 15:53] LABS: HEMOGLOBIN A1c 5.4 %
[2022-05-10 14:14] LABS: INSULIN LEVEL 12.2 uIU/mL (2.6-24.9)
== END ==
LOC: M PLALAB 10:24
PROVIDERS: ATTEND Internal Medicine Hematology
DX: E11.9 Type 2 diabetes mellitus without complications (principal); E53.8 Deficiency of other specified B group vitamins

== ENCOUNTER 2022-06-17 11:29 | Outpatient (CLI) | payer MEDICARE ==
[~2022-06-17] VITALS: Ht 177.8 cm; Wt 104.3 kg
[~2022-06-17 11:29] MED LIST changes: +ALBUTEROL SULFATE 2.5 MG/0.5 ML INH NEB SOLN INH PRN; +EPINEPHrine INJ 1 MG/ML 1ML AMP IM PRN; +diphenhydrAMINE 50MG/ML VIAL IV PRN; +methylPREDNISolone 125MG 2ML VIAL IV PRN
[2022-06-17] MEDS ORDERED: NS 1,000 ML IV SCH (11:30)
[2022-06-17] MEDS ORDERED: FERRIC CARBOXYMALTOSE INJ 750 MG in NS 250 ML (>50kg) IV ONE ×3 (11:30)
[2022-06-17 12:14] VITALS: BP 130/76
== END 2022-06-17 13:21 | disposition home or self-care (01) ==
LOC: M INFU 11:29
PROVIDERS: ATTEND Internal Medicine Hematology
DX: D50.9 Iron deficiency anemia, unspecified (principal)
CPT/HCPCS: 96365; J1439

== ENCOUNTER 2022-06-24 11:50 | Outpatient (CLI) | payer MEDICARE ==
[~2022-06-24] VITALS: Ht 177.8 cm; Wt 104.0 kg
[~2022-06-24 11:50] MED LIST changes: +FERRIC CARBOXYMALTOSE INJ 750 MG in NS 250 ML (>50kg) IV ONE; +NS 1,000 ML IV SCH
[2022-06-24 12:01] VITALS: BP 141/60
[2022-06-24 13:15] VITALS: BP 132/73
== END 2022-06-24 13:15 | disposition home or self-care (01) ==
LOC: M INFU 11:50
PROVIDERS: ATTEND Internal Medicine Hematology
DX: D50.9 Iron deficiency anemia, unspecified (principal)
CPT/HCPCS: 96365; J1439

== ENCOUNTER → 2022-08-05 | Outpatient (CLI) | payer MEDICARE ==
[~2022-08-05] MED LIST changes: -ALBUTEROL SULFATE 2.5 MG/0.5 ML INH NEB SOLN INH PRN; -EPINEPHrine INJ 1 MG/ML 1ML AMP IM PRN; -FERRIC CARBOXYMALTOSE INJ 750 MG in NS 250 ML (>50kg) IV ONE; -NS 1,000 ML IV SCH; -diphenhydrAMINE 50MG/ML VIAL IV PRN; -methylPREDNISolone 125MG 2ML VIAL IV PRN
[2022-08-05 14:18] LABS: HEMOGLOBIN A1c 4.8 % (4.0-6.0)
[2022-08-05 14:42] LABS: CHOLESTEROL RISK RATIO 3.08 (<5); HDL CHOLESTEROL 53.1 MG/DL (>40); LDL CHOLESTEROL 94.7 MG/DL (<100)
== END ==
LOC: M PLALAB 10:46
PROVIDERS: ATTEND Psychiatry & Neurology Psychiatry
DX: Z79.899 Other long term (current) drug therapy (principal); C61 Malignant neoplasm of prostate

== ENCOUNTER → 2022-08-05 | Outpatient (CLI) | payer MEDICARE | LOC: M PLALAB 10:48 | PROVIDERS: ATTEND Urology | DX: C61 Malignant neoplasm of prostate (principal) ==

== ENCOUNTER → 2022-09-30 | Outpatient (CLI) | payer MEDICARE ==
[2022-09-30 14:17] LABS: HEMATOCRIT 37.3 % (42.0-52.0); HEMOGLOBIN 12.3 g/dl (13.5-17.5); MEAN CORPUSCULAR HEMOGLOBIN 32.7 pg (27.0-33.0); MEAN CORPUSCULAR VOLUME 99.2 fl (80.0-96.0); PLATELET COUNT, AUTOMATED 167 10^3/uL (150-450); RED BLOOD COUNT 3.76 10^6/uL (4.30-6.10); WHITE BLOOD COUNT 4.9 10^3/uL (4.0-10.0)
[2022-09-30 14:42] LABS: CREATININE, URINE 57.6 MG/DL; MAU/CREAT RATIO 55.5 MCG/MG (0.0-30.0)
[2022-09-30 14:50] LABS: C REACTIVE PROTEIN QUANTITATIV 0.8 MG/DL (<1.0)
[2022-09-30 14:52] LABS: ALBUMIN 3.4 G/DL (3.2-5.2); BILIRUBIN,TOTAL 0.3 MG/DL (0.3-1.2); CALCIUM LEVEL 9.7 MG/DL (8.3-10.6); CHOLESTEROL RISK RATIO 2.97 (<5); CREATININE FOR GFR 1.27 MG/DL (0.70-1.30); GLOMERULAR FILTRATION RATE 58.9 (>42); HDL CHOLESTEROL 59.8 MG/DL (>40); LDL CHOLESTEROL 98.2 MG/DL (<100); POTASSIUM SERUM 4.2 MMOL/L (3.5-5.1); TOTAL PROTEIN 6.9 G/DL (5.7-8.2)
[2022-09-30 14:56] LABS: FERRITIN 46.1 NG/ML (10.5-307.3); THYROID STIMULATING HORMONE 1.608 uIU/ML (0.55-4.78)
[2022-09-30 14:57] LABS: FREE T4 1.26 NG/DL (0.89-1.76); TOTAL 25(OH) VITAMIN D 65.6 NG/ML (20.0-100.0)
[2022-09-30 16:42] LABS: HEMOGLOBIN A1c 5.4 % (4.0-6.0)
== END ==
LOC: M PLALAB 10:19
PROVIDERS: ATTEND Internal Medicine Hematology
DX: I12.9 Hypertensive chronic kidney disease with stage 1 through stage 4 chronic kidney disease, or unspecified chronic kidney disease (principal); D50.0 Iron deficiency anemia secondary to blood loss (chronic); Z12.5 Encounter for screening for malignant neoplasm of prostate; N18.9 Chronic kidney disease, unspecified
CPT/HCPCS: 36415; 80053; 80061; 82043; 82306; 82607; 82728; 83036; 83550; 84439; 84443; 84466; 85027; 85046; 86140; G0103

== ENCOUNTER → 2022-09-30 | Outpatient (CLI) | payer MEDICARE ==
[2022-09-30 14:20] LABS: HEMATOCRIT 38.2 % (42.0-52.0); HEMOGLOBIN 12.2 g/dl (13.5-17.5); MEAN CORPUSCULAR HEMOGLOBIN 31.7 pg (27.0-33.0); MEAN CORPUSCULAR HGB CONC 31.9 g/dl (32.0-36.5); MEAN CORPUSCULAR VOLUME 99.2 fl (80.0-96.0); PLATELET COUNT, AUTOMATED 168 10^3/uL (150-450); RED BLOOD COUNT 3.85 10^6/uL (4.30-6.10); WHITE BLOOD COUNT 4.9 10^3/uL (4.0-10.0)
[2022-09-30 14:28] LABS: INR 0.97; PROTHROMBIN TIME 13.1 SECONDS (12.5-14.5)
[2022-09-30 14:35] LABS: ERYTHROCYTE SEDIMENTATION RATE 65 mm/hr (0-20)
[2022-09-30 14:47] LABS: C REACTIVE PROTEIN QUANTITATIV 0.8 MG/DL (<1.0)
[2022-09-30 14:51] LABS: ALBUMIN 3.5 G/DL (3.2-5.2); BILIRUBIN,TOTAL 0.2 MG/DL (0.3-1.2); CALCIUM LEVEL 9.7 MG/DL (8.3-10.6); CREATININE FOR GFR 1.27 MG/DL (0.70-1.30); GLOMERULAR FILTRATION RATE 58.9 (>42); POTASSIUM SERUM 4.3 MMOL/L (3.5-5.1); TOTAL PROTEIN 6.9 G/DL (5.7-8.2)
== END ==
LOC: M PLALAB 10:21
PROVIDERS: ATTEND Physician Assistant Medical
DX: K51.00 Ulcerative (chronic) pancolitis without complications (principal); K74.69 Other cirrhosis of liver

== ENCOUNTER 2022-10-02 09:39 | Outpatient (CLI) | payer MEDICARE ==
[~2022-10-02] VITALS: Ht 177.8 cm; Wt 109.0 kg
[~2022-10-02 09:39] MED LIST changes: +ALBUTEROL SULFATE 2.5MG/0.5ML INH NEB SOLN INH PRN; +EPINEPHrine INJ 1 MG/ML 1ML AMP IM PRN; +FERRIC CARBOXYMALTOSE INJ 750 MG in NS 250 ML (>50kg) IV ONE; +NS 1,000 ML IV SCH; +diphenhydrAMINE 50MG/ML VIAL IV PRN; +methylPREDNISolone 125MG 2ML VIAL IV PRN
[2022-10-02 10:02] VITALS: BP 128/87
[2022-10-02 11:19] VITALS: BP 127/78
== END 2022-10-02 11:10 | disposition home or self-care (01) ==
LOC: M INFU 09:39
PROVIDERS: ATTEND Internal Medicine Hematology
DX: D50.9 Iron deficiency anemia, unspecified (principal)
CPT/HCPCS: 96365; J1439